=== PATIENT | female | born 1955 | race African-American/Black ===

== ENCOUNTER 2016-11-27 09:25 | Emergency (ER) | payer BC, MEDICARE, OTHER ==
[~2016-11-27] VITALS: Ht 165.1 cm; Wt 65.0 kg
[~2016-11-27 09:25] MED LIST: ARIC5TAB PO; BLOOD GLUCOSE T1 TES; FLON0.053; FLOV110A INH; GLUCTAB PO; HYDR25TA5 PO; LOSA100T PO; PRAV80TA2 PO; TAB-TAB PO; VENTAER INH
[2016-11-27 09:29] VITALS: BP 148/66; PULSE 61; RESP 18; TEMP 98.1; O2SAT 99
[2016-11-27] MEDS ORDERED: METF500T PO (09:34)
[2016-11-27] MEDS ORDERED: ARIC5TAB PO (09:34)
[2016-11-27] MEDS ORDERED: MEMA1TAB2 PO (09:35)
[2016-11-27] MEDS ORDERED: ARIC10TA PO (09:36)
--- NOTE | 2016-11-27 09:47 | PD ---
HPI Chief Complaint: Respiratory Symptoms Time Seen by Provider: 09:41 Travel History International Travel<30 days: No Contact w/Intl Traveler<30days: No Traveled to known affect area: No History of Present Illness HPI This is a 61-year-old woman who presents to the emergency department brought in by family for complaint of increasing dementia symptoms ongoing for the past 5 or 6 weeks. She lives with her . They report that she's been a little bit more confused than normal. She otherwise has been feeling generally well. She has no complaints. They report that she's been a little bit congested. She is a history of COPD. Some cough. No fevers. No other complaints. History Past Medical History Narrative Medical COPD Hypertension diabetes Alzheimer's type dementia Menopausal: Yes Social History Alcohol Use: Yes (OCCASIONALLY) Tobacco Use: No (quit 9 years ago) Allergies-Medications (Allergen,Severity, Reaction): Coded Allergies: Bee Sting (Verified Allergy, Severe, swelling, 07/10/15) Reported Meds & Prescriptions Reported Meds & Active Scripts Active Blood Glucose Test Strips 1 Apryl Apryl 1 Ea .ROUTE BID Contour test strips Reported Aricept (Donepezil) 10 Mg Tab 10 Mg PO HS Memantine 10 Mg Tab 10 Mg PO BID Metformin (Metformin HCl) 500 Mg Tab 500 Mg PO BIDPC With meals Pravastatin 80 Mg Tab 80 Mg PO HS Hydrochlorothiazide 25 Mg Tab 25 Mg PO DAILY Losartan (Losartan Potassium) 100 Mg Tab 100 Mg PO DAILY Ventolin Hfa 18 GM Inh (Albuterol Sulfate) 90 Mcg/Act Aer 2 Puff INH Q6H PRN Review of Systems Except as stated in HPI: all other systems reviewed are Neg Physical Exam Narrative GENERAL: Well-appearing 7-year-old, no acute distress. SKIN: Warm and dry. HEAD: Atraumatic. Normocephalic. EYES: Pupils equal and round. No scleral icterus. No injection or drainage. ENT: No nasal bleeding or discharge. Mucous membranes pink and moist. NECK: Trachea midline. No JVD. CARDIOVASCULAR: Regular rate and rhythm. No murmur appreciated. RESPIRATORY: Normal rate and effort. Lungs are clear. GASTROINTESTINAL: Abdomen soft, non-tender, nondistended. Hepatic and splenic margins not palpable. MUSCULOSKELETAL: No obvious deformities. No clubbing. No cyanosis. No edema. NEUROLOGICAL: Awake and alert. Some confusion. No facial asymmetry. Normal gait. Normal strength. Data Data Last Documented VS Vital Signs Date Time Temp Pulse Resp B/P Pulse Ox O2 Delivery O2 Flow Rate FiO2 11/27/16 09:29 98.1 61 18 148/66 99 Orders Chest, Single Ap (11/27/16 ) Complete Blood Count With Diff (11/27/16 09:42) Comprehensive Metabolic Panel (11/27/16 09:42) Urinalysis - C+S If Indicated (11/27/16 09:42) Urine Culture (11/27/16 10:21) Labs Laboratory Tests Test 11/27/16 11/27/16 10:00 10:21 White Blood Count 7.2 TH/MM3 Red Blood Count 4.62 MIL/MM3 Hemoglobin 12.5 GM/DL Hematocrit 37.9 % Mean Corpuscular Volume 82.2 FL Mean Corpuscular Hemoglobin 27.1 PG Mean Corpuscular Hemoglobin 33.0 % Concent Red Cell Distribution Width 13.2 % Platelet Count 382 TH/MM3 Mean Platelet Volume 7.7 FL Neutrophils (%) (Auto) 48.2 % Lymphocytes (%) (Auto) 24.4 % Monocytes (%) (Auto) 8.3 % Eosinophils (%) (Auto) 18.0 % Basophils (%) (Auto) 1.1 % Neutrophils # (Auto) 3.5 TH/MM3 Lymphocytes # (Auto) 1.8 TH/MM3 Monocytes # (Auto) 0.6 TH/MM3 Eosinophils # (Auto) 1.3 TH/MM3 Basophils # (Auto) 0.1 TH/MM3 CBC Comment DIFF FINAL Differential Comment Sodium Level 138 MEQ/L Potassium Level 3.9 MEQ/L Chloride Level 100 MEQ/L Carbon Dioxide Level 30.1 MEQ/L Anion Gap 8 MEQ/L Blood Urea Nitrogen 14 MG/DL Creatinine 0.98 MG/DL Estimat Glomerular Filtration 70 ML/MIN Rate Random Glucose 205 MG/DL Calcium Level 9.6 MG/DL Total Bilirubin 0.4 MG/DL Aspartate Amino Transf 17 U/L (AST/SGOT) Alanine Aminotransferase 28 U/L (ALT/SGPT) Alkaline Phosphatase 100 U/L Total Protein 8.1 GM/DL Albumin 3.8 GM/DL Urine Color YELLOW Urine Turbidity CLEAR Urine pH 5.0 Urine Specific [place] 1.018 Urine Protein NEG mg/dL Urine Glucose (UA) 150 mg/dL Urine Ketones NEG mg/dL Urine Occult Blood TRACE Urine Nitrite NEG Urine Bilirubin NEG Urine Urobilinogen LESS THAN 2.0 MG/DL Urine Leukocyte Esterase LARGE Urine RBC 2 /hpf Urine WBC 15 /hpf Urine Squamous Epithelial 3 /hpf Cells Urine Mucus FEW /lpf Microscopic Urinalysis Comment CULTURE INDICATED MDM Medical Decision Making Medical Screen Exam Complete: Yes Emergency Medical Condition: Yes Interpretation(s) Chest x-ray negative LABS: CBC unremarkable, CMP with mild increase glucose, UA was some pyuria. Differential Diagnosis Worsening dementia, infection, electrolyte abnormality, dehydration, other Narrative Course Medical decision making 61-year-old woman presents emergency room with increasing dementia symptoms. Looks well. Symptoms are subacute in onset. Some congestion. We'll check urine labs and x-ray. Likely discharge. Diagnosis Primary Impression: Dementia Qualified Code: G30.9 - Alzheimer's dementia without behavioral disturbance, unspecified timing of dementia onset Additional Impression: UTI (urinary tract infection) Qualified Code: N30.00 - Acute cystitis without hematuria Additional Instructions: Drink plenty of fluids stay well-hydrated. Take antibiotics as prescribed. Follow-up with her primary doctor in the next 2-4 days. Return to the emergency department for any new or worsening symptoms. Med/Other Pt SpecificInfo: Prescription(s) given Scripts Ciprofloxacin (Cipro)500 Mg Yns156 Mg PO BID 5 Days Prov:Romel Stoll MD 11/27/16 Disposition: 01 DISCHARGE HOME Condition: Stable Romel Stoll MD Nov 27, 2016 09:46
[2016-11-27 10:16] LABS: AUTOMATED NEUTROPHIL # 3.5 TH/MM3 (1.8-7.7); BASOPHIL # 0.1 TH/MM3 (0-0.2); BASOPHIL % 1.1 % (0.0-2.0); EOSINOPHIL # 1.3 TH/MM3 (0-0.4); HEMATOCRIT 37.9 % (35.0-46.0); HEMO FLAGS DIFF FINAL; LYMPH % 24.4 % (9.0-44.0); LYMPHOCYTE # 1.8 TH/MM3 (1.0-4.8); MEAN CELL VOLUME 82.2 FL (80.0-100.0); MEAN CORPUSCULAR HEMOGLOBIN 27.1 PG (27.0-34.0); MONO % 8.3 % (0.0-8.0); NEUT % 48.2 % (16.0-70.0); PLATELET COUNT 382 TH/MM3 (150-450); RED BLOOD COUNT 4.62 MIL/MM3 (4.00-5.30); RED CELL DISTRIBUTION WIDTH 13.2 % (11.6-17.2); WHITE BLOOD COUNT 7.2 TH/MM3 (4.0-11.0)
[2016-11-27 10:37] LABS: ANION GAP 8 MEQ/L (5-15); AST (GOT) 17 U/L (15-37); BICARBONATE 30.1 MEQ/L (21.0-32.0); BLOOD UREA NITROGEN 14 MG/DL (7-18); CHLORIDE 100 MEQ/L (98-107); GLOMERULAR FILTRATION RATE 70 ML/MIN (>89); POTASSIUM 3.9 MEQ/L (3.5-5.1); SODIUM (NA) 138 MEQ/L (136-145)
--- NOTE | 2016-11-27 10:38 | RADRPT ---
EXAM DATE/TIME: 11/27/2016 09:47 [facility] COMPARISON: CHEST SINGLE AP, July 10, 2015, 19:04. INDICATIONS : Cough and short of breath. MEDICAL HISTORY : None. SURGICAL HISTORY : None. ENCOUNTER: Initial ACUITY: 2 days PAIN SCORE: 0/10 LOCATION: Bilateral chest FINDINGS: A single view of the chest demonstrates the lungs to be symmetrically aerated without evidence of mas s, infiltrate or effusion. The cardiomediastinal contours are unremarkable. Osseous structures are intact. CONCLUSION: Normal examination. Johana Canchola MD on November 27, 2016 at 10:36 Board Certified Radiologist. This report was verified electronically.
[2016-11-27 10:42] LABS: BLOOD, URINE TRACE (NEG); COMMENT (UR) CULTURE INDICATED; CULTURE IF INDICATED CULTURE INDICATED; GLUCOSE,URINE 150 mg/dL (NEG); KETONE, URINE NEG (NEG); MUCUS URINE FEW /lpf (OCC); NITRITE,URINE NEG (NEG); SQUAMOUS EPITHELIAL CELL URINE 3 /hpf (0-5); URINE COLOR YELLOW (YELLW/STRAW)
[2016-11-27 10:42] LABS: ALKALINE PHOSPHATASE 100 U/L (45-117); ALT (GPT) 28 U/L (10-53); TOTAL BILIRUBIN ADULT 0.4 MG/DL (0.2-1.0)
[2016-11-27] MEDS ORDERED: CIPR-9 PO (10:55)
== END 2016-11-27 11:09 | disposition home or self-care (01) ==
LOC: NETRI 09:25
DX: G30.9 Alzheimer's disease, unspecified (principal); F02.80 Dementia in other diseases classified elsewhere, unspecified severity, without behavioral disturbance, psychotic disturbance, mood disturbance, and anxiety; N30.00 Acute cystitis without hematuria; R05 Cough; J44.9 Chronic obstructive pulmonary disease, unspecified; I10 Essential (primary) hypertension; E11.9 Type 2 diabetes mellitus without complications; Z79.84 Long term (current) use of oral hypoglycemic drugs; Z87.891 Personal history of nicotine dependence
CPT/HCPCS: 71010; 80053; 81001; 85025; 87086; 99285

== ENCOUNTER 2017-07-20 23:09 | Inpatient (IN) | payer BC, OTHER, MEDICARE ==
[~2017-07-20] VITALS: Ht 162.6 cm; Wt 69.7 kg
[~2017-07-20 23:09] MED LIST changes: +ARIC10TA PO; -ARIC5TAB PO; +CIPR-9 PO; -FLON0.053; -FLOV110A INH; -GLUCTAB PO; +MEMA1TAB2 PO; +METF500T PO; -TAB-TAB PO
[2017-07-20 23:13] VITALS: BP 198/91; PULSE 80; RESP 18; TEMP 97.7; O2SAT 95
[2017-07-20 23:30] VITALS: O2SAT 99
[2017-07-20] MEDS ORDERED: SODIUM CHLORIDE 0.9% FLUSH 10 ML FLUSH IVF PRN (23:30)
[2017-07-20] MEDS ORDERED: methylPREDNISolone SOD SUCC 125 MG/2 ML VIAL IVP ONE (23:30)
[2017-07-20] MEDS ORDERED: FLUTI110I INH (23:38)
[2017-07-20] MEDS ORDERED: CITA20TA4 PO (23:39)
[2017-07-20] MEDS: RESP: ALBUTEROL 2.5 MG/IPRATROPIUM 0.5 MG NEB (SCH) INH (23:39)
[2017-07-20] MEDS ORDERED: AMLO10TA2 PO (23:39)
[2017-07-20] MEDS ORDERED: MONT10TA4 PO (23:39)
[2017-07-20] MEDS ORDERED: DONE10TA7 PO (23:39)
--- NOTE | 2017-07-20 23:43 | PD ---
HPI Chief Complaint: Respiratory Distress Time Seen by Provider: 23:19 Travel History International Travel<30 days: No Contact w/Intl Traveler<30days: No Traveled to known affect area: No History of Present Illness HPI The patient is a 62 year old female who presents to the [facility] emergency department with a history of one week of increased cough with shortness of breath requiring use of her albuterol nebulizer treatments more frequently. The patient herself is not able to provide any history due to short -term memory problems related to Alzheimer's dementia. The patient lives at home with her . Her is able to provide her history. He reports that her cough is been at times productive of a white sputum. He denies her having any fevers. She has not had any chills or change in her appetite. He reports that she has been eating and drinking well. According to ambulance services that transported the patient the patient had O2 saturations on room air of 80%. The patient had diffuse expiratory wheezes noted. The patient was given albuterol nebulizer treatments en route to this facility and reportedly was feeling improved. The patient is not on any home oxygen. The patient is not on any steroids at home. She denies having any lower extremity edema. She denies having any chest pain. On review of systems otherwise, the patient and the patient's deny her having any neck pain, chest pain, abdominal pain , vomiting, diarrhea, urinary symptoms, or neurologic symptoms. [facility] Past Medical History Narrative Medical The patient's past medical history is significant for COPD, hypertension, diabetes mellitus, Alzheimer's dementia. Arthritis: No Asthma: Yes Autoimmune Disease: No Blood Disorders: No Anxiety: Yes Depression: No Heart Rhythm Problems: Yes Cancer: No Cardiovascular Problems: Yes (MURMUR SINCE BORN) High Cholesterol: Yes Chemotherapy: No Chest Pain: Yes Congestive Heart Failure: No COPD: Yes Cerebrovascular Accident: No Diabetes: Yes Patient Takes Glucophage: Yes (Metformin) Diminished Hearing: No Endocrine: No Gastrointestinal Disorders: No GERD: No Glaucoma: Yes Genitourinary: No Headaches: Yes Hepatitis: No Hiatal Hernia: No Heparin Induced Thrombocytopen: Yes Hypertension: Yes Immune Disorder: No Implanted Vascular Access Dvce: No Kidney Stones: No Musculoskeletal: Yes Neurologic: No Psychiatric: Yes Reproductive: Yes (HYSTERECTOMY INFLAMMED OVARY) Respiratory: Yes Migraines: No Myocardial Infarction: No Radiation Therapy: No Renal Failure: No Seizures: No Sickle Cell Disease: No Sleep Apnea: No Thyroid Disease: No Ulcer: No ?: Not Menopausal: Yes Past Surgical History Narrative Surgical The patient's past surgical history Abdominal Surgery: Yes (HYSTERECTOMY ) AICD: No Appendectomy: No Arteriovenous Shunt: No Cardiac Surgery: No Cholecystectomy: No Ear Surgery: No Endocrine Surgery: No Eye Surgery: No Genitourinary Surgery: No Gynecologic Surgery: Yes (HYSTERECTOMY ) Hysterectomy: Yes Insulin Pump: No Joint Replacement: No Neurologic Surgery: No Oral Surgery: No Pacemaker: No Thoracic Surgery: No Other Surgery: Yes Social History Alcohol Use: Yes (OCCASIONALLY) Tobacco Use: No (quit 9 years ago) Substance Use: No Allergies-Medications (Allergen,Severity, Reaction): Coded Allergies: bee venom protein (honey bee) (Verified Allergy, Severe, swelling, 07/20/17) Reported Meds & Prescriptions Reported Meds & Active Scripts Active Pravastatin 80 Mg Tab 80 Mg PO HS Blood Glucose Test Strips 1 Apryl Apryl 1 Ea .ROUTE BID Contour test strips Reported Donepezil 10 Mg Tab 10 Mg PO DAILY Montelukast (Montelukast Sodium) 10 Mg Tab 10 Mg PO HS Citalopram (Citalopram Hydrobromide) 20 Mg Tab 20 Mg PO DAILY Amlodipine (Amlodipine Besylate) 10 Mg Tab 10 Mg PO DAILY Flovent Hfa 12 GM Inh (Fluticasone Propionate) 110 Mcg/Act Inh 2 Puff INH BID Memantine 10 Mg Tab 10 Mg PO BID Metformin (Metformin HCl) 500 Mg Tab 850 Mg PO BIDPC With meals Hydrochlorothiazide 25 Mg Tab 25 Mg PO DAILY Losartan (Losartan Potassium) 100 Mg Tab 100 Mg PO DAILY Ventolin Hfa 18 GM Inh (Albuterol Sulfate) 90 Mcg/Act Aer 2 Puff INH Q6H PRN Review of Systems Except as stated in HPI: all other systems reviewed are Neg General / Constitutional: No: Fever Eyes: No: Visual changes HENT: Positive: Congestion, No: Headaches Cardiovascular: No: Chest Pain or Discomfort Respiratory: Positive: Cough, Shortness of Breath, Wheezing Gastrointestinal: No: Nausea, Vomiting, Diarrhea, Abdominal Pain, Loss of Appetite Genitourinary: No: Dysuria Musculoskeletal: No: Pain Skin: No Rash Neurologic: No: Weakness, Focal Abnormalities, Change in Mentation, Slurred Speech, Sensory Disturbance Psychiatric: No: Depression Endocrine: No: Polydipsia Hematologic/Lymphatic: No: Easy Bruising Physical Exam Narrative General: The patient is a well-developed well-nourished female in no acute distress. The patient is saturating 95% on 2 L nasal cannula O2. Head and Neck exam: Head is normocephalic atraumatic. Eyes: EOMI, pupils are equal round and reactive to light. Nose: Midline septum with pink mucous membranes Mouth: Dentition unremarkable. Moist mucus membranes. Posterior oropharynx is not erythematous. No tonsillar hypertrophy. Uvula midline. Airway patent. Neck: No palpable lymphadenopathy. No nuchal rigidity. No thyromegaly. Cardiovascular: Regular rate and rhythm without murmurs, gallops, or rubs. Lungs: Soft expiratory wheezes are audible throughout bilateral lung serrano, no rhonchi , no crackles. No accessory muscle use. Abdomen: Soft, without tenderness to palpation in all 4 quadrants of the abdomen. No guarding, rebound, or rigidity. Normal bowel sounds are audible. No tenderness on palpation of McBurney's point. Extremities: No clubbing, cyanosis, or edema. 2+ pulses in all 4 extremities. No calf tenderness on palpation. Back: No costovertebral angle tenderness to palpation. Neurologic Exam: Grossly nonfocal. Skin Exam: No rash noted. Intact skin that is warm and dry. Data Data Last Documented VS Vital Signs Date Time Temp Pulse Resp B/P (MAP) Pulse Ox O2 Delivery O2 Flow Rate FiO2 07/21/17 04:00 85 18 155/74 (101) 98 Room Air 07/21/17 01:20 2.00 07/20/17 23:13 97.7 Orders Orders Complete Blood Count With Diff (07/20/17 23:22) Comprehensive Metabolic Panel (07/20/17 23:22) B-Type Natriuretic Peptide (07/20/17 23:22) D-Dimer (07/20/17 23:22) Act Partial Throm Time (Ptt) (07/20/17 23:22) Prothrombin Time / Inr (Pt) (07/20/17 23:22) Magnesium (Mg) (07/20/17 23:22) Ckmb (Isoenzyme) Profile (07/20/17 23:22) Troponin I (07/20/17 23:22) Urinalysis - C+S If Indicated (07/20/17 23:22) Iv Access Insert/Monitor (07/20/17 23:22) Electrocardiogram (07/20/17 23:22) Ecg Monitoring (07/20/17 23:22) Oximetry (07/20/17 23:22) Oxygen Administration (07/20/17 23:22) Chest, Single Ap (07/20/17 23:22) Sodium Chloride 0.9% Flush (Ns Flush) (07/20/17 23:30) Methylprednisolone So Succ Inj (Solumedr (07/20/17 23:30) Albuterol-Ipratropium Neb (Duoneb Neb) (07/20/17 23:30) Lactic Acid Sepsis Protocol (07/21/17 00:40) Blood Culture (07/21/17 00:40) Ceftriaxone Inj (Rocephin Inj) (07/21/17 00:45) Azithromycin Inj (Zithromax Inj) (07/21/17 00:45) Ct Pulmonary Angiogram (07/21/17 01:21) Sodium Chlorid 0.9% 500 Ml Inj (Ns 500 M (07/21/17 02:00) Potassium Chloride Eff (K-Lyte Cl Eff) (07/21/17 02:45) Iohexol 350 Inj (Omnipaque 350 Inj) (07/21/17 02:59) Admit Order (Ed Use Only) (07/21/17 04:15) Labs Laboratory Tests Test 07/20/17 23:32 07/21/17 01:05 07/21/17 01:54 07/21/17 03:30 White Blood Count 6.7 TH/MM3 Red Blood Count 4.81 MIL/MM3 Hemoglobin 13.3 GM/DL Hematocrit 40.7 % Mean Corpuscular Volume 84.7 FL Mean Corpuscular Hemoglobin 27.7 PG Mean Corpuscular Hemoglobin Concent 32.8 % Red Cell Distribution Width 13.2 % Platelet Count 396 TH/MM3 Mean Platelet Volume 8.0 FL Neutrophils (%) (Auto) 47.0 % Lymphocytes (%) (Auto) 41.9 % Monocytes (%) (Auto) 6.1 % Eosinophils (%) (Auto) 4.4 % Basophils (%) (Auto) 0.6 % Neutrophils # (Auto) 3.2 TH/MM3 Lymphocytes # (Auto) 2.8 TH/MM3 Monocytes # (Auto) 0.4 TH/MM3 Eosinophils # (Auto) 0.3 TH/MM3 Basophils # (Auto) 0.0 TH/MM3 CBC Comment DIFF FINAL Differential Comment Prothrombin Time 11.2 SEC Prothromb Time International Ratio 1.0 RATIO Activated Partial Thromboplast Time 24.9 SEC D-Dimer Quantitative (PE/DVT) 1.38 MG/L FEU B-Type Natriuretic Peptide 10 PG/ML Lactic Acid Level 3.4 mmol/L Blood Urea Nitrogen 17 MG/DL Creatinine 1.47 MG/DL Random Glucose 275 MG/DL Total Protein 7.0 GM/DL Albumin 3.5 GM/DL Calcium Level 8.9 MG/DL Magnesium Level 1.3 MG/DL Alkaline Phosphatase 69 U/L Aspartate Amino Transf (AST/SGOT) 13 U/L Alanine Aminotransferase (ALT/SGPT) 11 U/L Total Bilirubin 0.4 MG/DL Sodium Level 138 MEQ/L Potassium Level 2.9 MEQ/L Chloride Level 102 MEQ/L Carbon Dioxide Level 24.9 MEQ/L Anion Gap 11 MEQ/L Estimat Glomerular Filtration Rate 44 ML/MIN Total Creatine Kinase 69 U/L Troponin I LESS THAN 0.02 NG/ML Urine Color LIGHT-YELLOW Urine Turbidity CLEAR Urine pH 5.0 Urine Specific [place] 1.018 Urine Protein NEG mg/dL Urine Glucose (UA) 300 mg/dL Urine Ketones NEG mg/dL Urine Occult Blood NEG Urine Nitrite NEG Urine Bilirubin NEG Urine Urobilinogen LESS THAN 2.0 MG/DL Urine Leukocyte Esterase SMALL Urine RBC 1 /hpf Urine WBC 2 /hpf Urine Squamous Epithelial Cells <1 /hpf Urine Hyaline Casts 1 /lpf Microscopic Urinalysis Comment CULT NOT INDICATED MDM Medical Decision Making Medical Screen Exam Complete: Yes Emergency Medical Condition: Yes Medical Record Reviewed: Yes Interpretation(s) Last Impressions CT Angiography 07/21/17 0121 Signed Impressions: Service Date/Time: Friday, July 21, 2017 02:51 - CONCLUSION: 1. No pulmonary embolus. 2. Mild, diffuse peribronchial cuffing as can be seen with bronchitis/bronchiolitis. No lobar consolidation. Vitaliy Mcguire MD Chest X-Ray 07/20/17 3789 Signed Impressions: Service Date/Time: Thursday, July 20, 2017 23:48 - CONCLUSION: Mild right upper lobe consolidation. Vitaliy Mcguire MD Differential Diagnosis COPD exacerbation, versus pneumonia, versus new-onset congestive heart failure, versus acute coronary syndrome, versus pulmonary embolism Narrative Course During the course of the patients emergency department visit, the patients history, examination, and differential diagnosis were reviewed with the patient. The patient had IV access obtained and blood work sent for analysis. The patient was placed on a court monitor with oximetry and blood pressure monitoring. An ECG was done on arrival. The patient's ECG shows a sinus rhythm with a marked sinus arrhythmia, heart rate of 73, nonspecific T-wave abnormalities, no acute ST segment elevation, QRS duration is 91 ms, QTC 435 ms. The patient was initially provided DuoNeb nebs 3, Solu-Medrol 125 mg IV The patients laboratory studies were reviewed and remarkable for a white count 6.7, hemoglobin 13.3, platelets 396 with 4.4 eosinophils, CMP is remarkable for a potassium of 2.9, creatinine 1.47, glucose 275, magnesium 1.3. Be supplemented IV, AST 13, troponin I less than 0.02, CPK 69, albumin 3.5, BNP is 10, lactic acid 3.4, PT PTT within normal as, d-dimer elevated at 1.38, therefore a CTA to rule out PE was ordered. Urinalysis is remarkable for 300 glucose otherwise unremarkable. Radiology studies were reviewed and remarkable for a chest x-ray that was read by the reading radiologist as showing a mild right upper lobe consolidation, even this finding, lactic acid was ordered and blood cultures 2 were ordered. The patient was started on Rocephin 1 g IV, Zithromax 500 IV. CTA to rule out PE shows no evidence of PE. Mild diffuse peribronchial cuffing as can be seen with bronchitis, bronchiolitis, no lobar consolidation. The patients results were discussed with the patient, including the plan of care. I explained that further testing and/ or monitoring is indicated based on the patients history, examination, and/ or laboratory findings. Therefore, I recommended admission for additional evaluation. The patient expressed understanding and was agreeable with this plan. The patient was admitted to the hospital in stable condition and [facility]. Sepsis Criteria Severe Sepsis (+one): Lactate >2 Physician Communication Physician Communication The patient's case was discussed with Dr. Lara [facility] Diagnosis Primary Impression: COPD exacerbation Additional Impression: Hypoxemia Admitting Information Admitting Physician Requests: Admit Sharmaine Rizo MD Jul 20, 2017 23:43
[2017-07-20 23:56] LABS: AUTOMATED NEUTROPHIL # 3.2 TH/MM3 (1.8-7.7); BASOPHIL % 0.6 % (0.0-2.0); EOSINOPHIL # 0.3 TH/MM3 (0-0.4); EOSINOPHIL % 4.4 % (0.0-4.0); HEMATOCRIT 40.7 % (35.0-46.0); HEMO FLAGS DIFF FINAL; LYMPH % 41.9 % (9.0-44.0); LYMPHOCYTE # 2.8 TH/MM3 (1.0-4.8); MEAN CELL VOLUME 84.7 FL (80.0-100.0); MEAN CORPUSCULAR HEMOGLOBIN 27.7 PG (27.0-34.0); MEAN CORPUSCULAR HGB CONC 32.8 % (32.0-36.0); MONO % 6.1 % (0.0-8.0); PLATELET COUNT 396 TH/MM3 (150-450); RED BLOOD COUNT 4.81 MIL/MM3 (4.00-5.30); RED CELL DISTRIBUTION WIDTH 13.2 % (11.6-17.2); WHITE BLOOD COUNT 6.7 TH/MM3 (4.0-11.0)
[2017-07-21] VITALS (15 sets, daily range): BP systolic 128–164; BP diastolic 68–81; PULSE 66–85; RESP 18–20; TEMP 97.8–98.2; O2SAT 96–99
[2017-07-21 00:05] LABS: APTT (PATIENT) 24.9 SEC (24.3-30.1); PROTHROMBIN TIME - PATIENT 11.2 SEC (9.8-11.6)
--- NOTE | 2017-07-21 00:09 | RADRPT ---
EXAM DATE/TIME: 07/20/2017 23:48 [facility] COMPARISON: CHEST SINGLE AP, July 10, 2015, 19:04. CHEST SINGLE AP, November 27, 2016, 9:47. INDICATIONS : Shortness of breath. MEDICAL HISTORY : None. SURGICAL HISTORY : None. ENCOUNTER: Initial ACUITY: 1 day PAIN SCORE: 0/10 LOCATION: Bilateral chest FINDINGS: Mild, streaky infiltrate seen medially of the right upper lobe. Lungs are otherwise clear. No pleural effusion or pneumothorax. Heart size stable, within normal limits. CONCLUSION: Mild right upper lobe consolidation. Vitaliy Mcguire MD on July 21, 2017 at 0:06 Board Certified Radiologist. This report was verified electronically.
[2017-07-21] MEDS ORDERED: cefTRIAXone INJ 1,000 MG in SODIUM CHLORIDE 0.9% INJ 100 ML IV ONE (00:45)
[2017-07-21] MEDS ORDERED: AZITHROMYCIN INJ 500 MG in SODIUM CHLOR 0.9% 250 ML INJ 250 ML IV ONE (00:45)
[2017-07-21] MEDS ORDERED: SODIUM CHLORID 0.9% 500 ML INJ 500 ML IV ONE (02:00)
[2017-07-21 02:25] LABS: ALKALINE PHOSPHATASE 69 U/L (45-117); ALT (GPT) 11 U/L (10-53); ANION GAP 11 MEQ/L (5-15); AST (GOT) 13 U/L (15-37); BICARBONATE 24.9 MEQ/L (21.0-32.0); BLOOD UREA NITROGEN 17 MG/DL (7-18); CHLORIDE 102 MEQ/L (98-107); CREATINE KINASE 69 U/L (26-192); GLOMERULAR FILTRATION RATE 44 ML/MIN (>89); MAGNESIUM 1.3 MG/DL (1.5-2.5); SODIUM (NA) 138 MEQ/L (136-145); TOTAL BILIRUBIN ADULT 0.4 MG/DL (0.2-1.0)
[2017-07-21 02:31] LABS: POTASSIUM 2.9 MEQ/L (3.5-5.1)
[2017-07-21] MEDS ORDERED: POTASSIUM CHLORIDE 25 MEQ EFFERVESCENT TAB PO ONE (02:45)
[2017-07-21] MEDS ORDERED: IOHEXOL 350 MG/ML 10 ML VIAL (for RAD DIAG) IVCONTRAST ONE (02:59)
--- NOTE | 2017-07-21 03:21 | RADRPT ---
EXAM DATE/TIME: 07/21/2017 02:51 [facility] COMPARISON: CTA CHEST W 3D RECON, March 26, 2010, 15:10. INDICATIONS : Short of breath, elevated D-Dimer. Evaluate for embolism. IV CONTRAST: 74 cc Omnipaque 350 (iohexol) IV RADIATION DOSE: 23.30 CTDIvol (mGy) MEDICAL HISTORY : Chronic obstructive pulmonary disease. Hypertension. Diabetes mellitus type 2. SURGICAL HISTORY : Hysterectomy. ENCOUNTER: Initial ACUITY: 1 day PAIN SCALE: 0/10 LOCATION: chest TECHNIQUE: Volumetric scanning of the chest was performed using a pulmonary embolism protocol MIP images were re constructed. Using automated exposure control and adjustment of the mA and/or kV according to patien t size, radiation dose was kept as low as reasonably achievable to obtain optimal diagnostic quality images. DICOM format image data is available electronically for review and comparison. Follow-up recommendations for detected pulmonary nodules are based at a minimum on nodule size and pa tient risk factors according to Fleischner Society Guidelines. FINDINGS: PULMONARY ARTERIES: No filling defects are seen in the pulmonary arteries through the segmental level. LUNGS: There is no consolidation or pneumothorax . Mild bronchial wall thickening, fairly generalized but p erhaps slightly more predominant in the right lower lobe. No masses are seen. No concerning pulmonary nodule is visualized. PLEURAE: There is no pleural thickening or pleural effusion. MEDIASTINUM: There is good visualization of the great vessels of the middle mediastinum. No evidence of mediastin al or hilar adenopathy/mass. MUSCULOSKELETAL: Within normal limits for patient age. MISCELLANEOUS: The visualized upper abdominal organs demonstrate no acute abnormality. CONCLUSION: 1. No pulmonary embolus. 2. Mild, diffuse peribronchial cuffing as can be seen with bronchitis/bronchiolitis. No lobar consoli dation. Vitaliy Mcguire MD on July 21, 2017 at 3:16 Board Certified Radiologist. This report was verified electronically.
[2017-07-21 03:23] LABS: LACTIC ACID GHOST NOT REPORTABLE
[2017-07-21 04:17] LABS: BLOOD, URINE NEG (NEG); GLUCOSE,URINE 300 mg/dL (NEG); HYALINE CAST, URINE 1 /lpf (RARE); KETONE, URINE NEG (NEG); NITRITE,URINE NEG (NEG); SQUAMOUS EPITHELIAL CELL URINE <1 /hpf (0-5); URINE COLOR LIGHT-YELLOW (YELLW/STRAW)
[2017-07-21 04:22] LABS: COMMENT (UR) CULT NOT INDICATED; CULTURE IF INDICATED CULT NOT INDICATED
--- NOTE | 2017-07-21 05:56 | HHI.HP ---
HPI Service [facility] Primary Care Physician Vitaliy Daniel MD Admission Diagnosis COPD exacerbation, bronchitis Diagnoses: Chief Complaint: Short of breath Travel History International Travel<30 Days: No Contact w/Intl Traveler <30 Da: No Traveled to Known Affected Are: No History of Present Illness 62 years old female presented to the ED with a complaint of worsening shortness of breath over one week with increase frequency of using her nebulizer treatment. Patient has history of Alzheimer with short term memory problems, most of the story was obtained from her daughter who was at the bedside. Daughter mentioned that the patient has been having worsening cough with clear phlegm, fatigue, no fever or chills no nausea or vomiting, no chest pain no dysuria urgency or frequency Review of Systems Except as stated in HPI: all other systems reviewed are Neg All systems reviewed and was positive for what is mentioned in history of present illness otherwise negative, most of the review was done with the daughter because patient had Alzheimer's Past Family Social History Past Medical History COPD Hypertension Diabetes mellitus Alzheimer disease Murmur since more Past Surgical History Hysterectomy Allergies: Coded Allergies: bee venom protein (honey bee) (Verified Allergy, Severe, swelling, 07/20/17) Family History Diabetes runs in her family Social History Drinks alcohol occasionally Quit smoking 9 years ago No illicit drug abuse Physical Exam Vital Signs Vital Signs Date Time Temp Pulse Resp B/P (MAP) Pulse Ox O2 Delivery O2 Flow Rate FiO2 07/21/17 04:00 85 18 155/74 (101) 98 Room Air 07/21/17 01:20 79 20 164/74 (104) 99 Nasal Cannula 2.00 07/20/17 23:30 99 Nasal Cannula 2.00 07/20/17 23:27 95 Nasal Cannula 2.00 07/20/17 23:25 95 Nasal Cannula 2.00 07/20/17 23:13 97.7 80 18 198/91 (126) 95 Physical Exam GENERAL: This is a well-nourished, well-developed patient, in no apparent distress. SKIN: No rashes, warm and dry HEAD: Atraumatic. Normocephalic. EYES: Pupils equal round and reactive. Extraocular motions intact. No scleral icterus. ENT: Nose without bleeding, or drainage, Airway patent. NECK: Trachea midline. Supple CARDIOVASCULAR: Slightly tacky with systolic murmur 2 out of 6 RESPIRATORY: Fair air entry bilaterally. No wheezes, rales, or rhonchi. GASTROINTESTINAL: Abdomen soft, non-tender, nondistended. Positive bowel sounds MUSCULOSKELETAL: Extremities without clubbing, cyanosis, or edema. Pedal pulses appreciated NEUROLOGICAL: Awake and alert. Moves all extremity. Normal speech.no focal neurological deficit Laboratory Laboratory Tests Test 07/20/17 23:32 07/21/17 01:05 07/21/17 01:54 07/21/17 03:30 White Blood Count 6.7 Red Blood Count 4.81 Hemoglobin 13.3 Hematocrit 40.7 Mean Corpuscular Volume 84.7 Mean Corpuscular Hemoglobin 27.7 Mean Corpuscular Hemoglobin Concent 32.8 Red Cell Distribution Width 13.2 Platelet Count 396 Mean Platelet Volume 8.0 Neutrophils (%) (Auto) 47.0 Lymphocytes (%) (Auto) 41.9 Monocytes (%) (Auto) 6.1 Eosinophils (%) (Auto) 4.4 Basophils (%) (Auto) 0.6 Neutrophils # (Auto) 3.2 Lymphocytes # (Auto) 2.8 Monocytes # (Auto) 0.4 Eosinophils # (Auto) 0.3 Basophils # (Auto) 0.0 CBC Comment DIFF FINAL Differential Comment Prothrombin Time 11.2 Prothromb Time International Ratio 1.0 Activated Partial Thromboplast Time 24.9 D-Dimer Quantitative (PE/DVT) 1.38 B-Type Natriuretic Peptide 10 Lactic Acid Level 3.4 Blood Urea Nitrogen 17 Creatinine 1.47 Random Glucose 275 Total Protein 7.0 Albumin 3.5 Calcium Level 8.9 Magnesium Level 1.3 Alkaline Phosphatase 69 Aspartate Amino Transf (AST/SGOT) 13 Alanine Aminotransferase (ALT/SGPT) 11 Total Bilirubin 0.4 Sodium Level 138 Potassium Level 2.9 Chloride Level 102 Carbon Dioxide Level 24.9 Anion Gap 11 Estimat Glomerular Filtration Rate 44 Total Creatine Kinase 69 Troponin I LESS THAN 0.02 Urine Color LIGHT-YELLOW Urine Turbidity CLEAR Urine pH 5.0 Urine Specific [place] 1.018 Urine Protein NEG Urine Glucose (UA) 300 Urine Ketones NEG Urine Occult Blood NEG Urine Nitrite NEG Urine Bilirubin NEG Urine Urobilinogen LESS THAN 2.0 Urine Leukocyte Esterase SMALL Urine RBC 1 Urine WBC 2 Urine Squamous Epithelial Cells <1 Urine Hyaline Casts 1 Microscopic Urinalysis Comment CULT NOT INDICATED Test 07/21/17 05:00 Date/Time Source Procedure Growth Status 07/21/17 01:27 Blood Peripheral Aerobic Blood Culture Pending Received 07/21/17 01:27 Blood Peripheral Anaerobic Blood Culture Pending Received Result Diagram: 07/20/17 2332 07/21/17 [address] Angiography 07/21/17 012 Signed Impressions: Service Date/Time: Friday, July 21, 2017 02:51 - CONCLUSION: 1. No pulmonary embolus. 2. Mild, diffuse peribronchial cuffing as can be seen with bronchitis/bronchiolitis. No lobar consolidation. Vitaliy Mcguire MD Chest X-Ray 07/20/172321 Signed Impressions: Service Date/Time: Thursday, July 20, 2017 23:48 - CONCLUSION: Mild right upper lobe consolidation. Vitaliy Mcguire MD Caprini VTE Risk Assessment Caprini VTE Risk Assessment: Mod/High Risk (score >= 2) Caprini Risk Assessment Model Point Value = 1 Point Value = 2 Point Value = 3 Point Value = 5 Age 41-60 Minor surgery BMI > 25 kg/m2 Swollen legs Varicose veins or History of unexplained or recurrent spontaneous Oral contraceptives or hormone replacement Sepsis (< 1 month) Serious lung disease, including pneumonia (< 1 month) Abnormal pulmonary function Acute myocardial infarction Congestive heart failure (< 1 month) History of inflammatory bowel disease Medical patient at bed rest Age 61-74 Arthroscopic surgery Major open surgery (> 45 min) Laparoscopic surgery (> 45 min) Malignancy Confined to bed (> 72 hours) Immobilizing plaster cast Central venous access Age >= 75 History of VTE Family history of VTE Factor V Leiden Prothrombin [id number] Lupus anticoagulant Anticardiolipin antibodies Elevated serum homocysteine Heparin-induced thrombocytopenia Other congenital or acquired thrombophilia Stroke (< 1 month) Elective arthroplasty Hip, pelvis, or leg fracture Acute spinal cord injury (< 1 month) Prophylaxis Regimen Total Risk Factor Score Risk Level Prophylaxis Regimen 0-1 Low Early ambulation 2 Moderate Order ONE of the following: *Sequential Compression Device (SCD) *Heparin 5000 units SQ BID 3-4 Higher Order ONE of the following medications: *Heparin 5000 units SQ TID *Enoxaparin/Lovenox 40 mg SQ daily (WT < 150 kg, CrCl > 30 mL/min) *Enoxaparin/Lovenox 30 mg SQ daily (WT < 150 kg, CrCl > 10-29 mL/min) *Enoxaparin/Lovenox 30 mg SQ BID (WT < 150 kg, CrCl > 30 mL/min) AND/OR *Sequential Compression Device (SCD) 5 or more Highest Order ONE of the following medications: *Heparin 5000 units SQ TID (Preferred with Epidurals) *Enoxaparin/Lovenox 40 mg SQ daily (WT < 150 kg, CrCl > 30 mL/min) *Enoxaparin/Lovenox 30 mg SQ daily (WT < 150 kg, CrCl > 10-29 mL/min) *Enoxaparin/Lovenox 30 mg SQ BID (WT < 150 kg, CrCl > 30 mL/min) AND *Sequential Compression Device (SCD) Assessment and Plan Assessment and Plan 62 years old female presented with - Worsening short of breath with cough , fatigue and dehydration: X-rays of the chest showed right middle lobe consolidation however CT chest did not confirm this, most likely acute bronchitis, continue monitoring, DuoNeb, electrolyte correction. CTA chest reviewed personally by me Lactic acidosis 3.4: Continue iv fluid repeat labs in a.m. -EVA: Creatinine Drinks alcohol occasionally Avoid nephrotoxin, monitor BMP and creatinine, monitor urine output, consider further follow up with renal ultrasound spot urine over. Protein creatinine ratio Quit smoking 9 years ago No illicit drug abuse -Electrolyte imbalance with hypomagnesemia and hypokalemia: Replace i.e. nothing by mouth as needed DVT prophylaxis with SCD and heparin - Physician Certification 2 Midnight Certification Type: Admission for Inpatient Services Order for Inpatient Services The services are ordered in accordance with Medicare regulations or non- Medicare payer requirements, as applicable. In the case of services not specified as inpatient-only, they are appropriately provided as inpatient services in accordance with the 2-midnight benchmark. Estimated LOS (days): 2 days is the estimated time the patient will need to remain in the hospital, assuming treatment plan goals are met and no additional complications. Post-Hospital Plan: Not yet determined Jose Lara MD Jul 21, 2017 05:56
[2017-07-21] MEDS: MAGNESIUM SULFATE 1 GM PREMIX 100 ML IV SCH ×2 (06:02→07:47)
[2017-07-21] MEDS ORDERED: SODIUM CHLORIDE 0.9% FLUSH 10 ML FLUSH IV FLUSH PRN (08:00)
[2017-07-21] MEDS ORDERED: DEXTROSE 50% IN WATER 50 ML VIAL(D50) IV PRN (08:00)
[2017-07-21] MEDS ORDERED: NALOXONE HCL 0.4 MG/ML AMP IV PRN (08:00)
[2017-07-21] MEDS ORDERED: GLUCAGON 1 MG/ML VIAL OTHER PRN (08:00)
[2017-07-21] MEDS ORDERED: RESP: ALBUTEROL 2.5 MG/IPRATROPIUM 0.5 MG NEB (PRN) NEB (08:00)
[2017-07-21] MEDS ORDERED: MAGNESIUM HYDROXIDE SUSP 30 ML CUP PO PRN (09:00)
[2017-07-21] MEDS ORDERED: ONDANSETRON HCL 4 MG/2 ML VIAL IVP PRN (09:00)
[2017-07-21] MEDS ORDERED: ACETAMINOPHEN 325 MG TAB PO PRN ×2 (09:00)
[2017-07-21] MEDS: MEMANTINE HCL 10 MG TAB PO SCH ×2 (09:01→20:35)
[2017-07-21] MEDS: SODIUM CHLOR 0.9% 1000 ML INJ 1,000 ML IV SCH ×2 (09:01→23:18)
[2017-07-21] MEDS: DONEPEZIL HCL 5 MG TAB PO SCH (09:01)
[2017-07-21] MEDS: SODIUM CHLORIDE 0.9% FLUSH 10 ML FLUSH IV FLUSH SCH ×2 (09:10→20:35)
[2017-07-21] MEDS: INSULIN ASPART SUPPLEMENTAL SCALE SQ SCH ×3 (11:23→20:45)
--- NOTE | 2017-07-21 15:40 | HHI.PR ---
Addendum to Inpatient Note Addendum Reason: Additional Documentation Additional Information Follow-up shortness of breath, lactic acidosis Patient seen and examined, reports some improvement of shortness of breath since admission Continue to monitor labs Dylan Sweet MD Jul 21, 2017 15:39
--- NOTE | 2017-07-21 20:04 | EKG ---
Date Performed: 07/21/2017 Time Performed: 00:32:06 PTAGE: 62 years EKG: Sinus rhythm WITH MARKED SINUS ARRHYTHMIA NONSPECIFIC T-WAVE ABNORMALITY BORDERLINE ECG NO PREVIOUS TRACING DOCTOR: Van Elias Interpretating Date/Time 07/21/2017 20:02:48
[2017-07-21] MEDS: MONTELUKAST SODIUM 10 MG TAB PO SCH (20:35)
[2017-07-21] MEDS: PRAVASTATIN SOD 80 MG TAB PO SCH (20:35)
[2017-07-21] MEDS: FLUTICASONE PROPIONATE 110 MCG/ACT 12 GM INHALER INH SCH (20:38)
[2017-07-22] VITALS (23 sets, daily range): BP systolic 128–174; BP diastolic 73–81; PULSE 55–77; RESP 16–19; TEMP 97.9–98.8; O2SAT 97–99
[2017-07-22] MEDS: INSULIN ASPART SUPPLEMENTAL SCALE SQ SCH ×4 (06:31→21:00)
[2017-07-22] MEDS: MEMANTINE HCL 10 MG TAB PO SCH ×2 (09:33→21:18)
[2017-07-22] MEDS: SODIUM CHLORIDE 0.9% FLUSH 10 ML FLUSH IV FLUSH SCH ×2 (09:33→21:00)
[2017-07-22] MEDS: DONEPEZIL HCL 5 MG TAB PO SCH (09:34)
[2017-07-22] MEDS: FLUTICASONE PROPIONATE 110 MCG/ACT 12 GM INHALER INH SCH ×2 (10:28→21:19)
--- NOTE | 2017-07-22 10:56 | HHI.PR ---
Subjective Remarks Follow-up bronchitis/dyspnea/lactic acidosis 07/22/17-patient seen and examined, reports some improvement or shortness of breath since admission. Afebrile Objective Vitals Vital Signs Date Time Temp Pulse Resp B/P (MAP) Pulse Ox O2 Delivery O2 Flow Rate FiO2 07/22/17 10:00 63 07/22/17 08:08 98.8 77 18 135/75 (95) 97 07/22/17 07:00 68 07/22/17 06:00 67 07/22/17 05:00 65 07/22/17 04:00 61 07/22/17 04:00 98.1 62 18 128/73 (91) 97 07/22/17 03:00 63 07/22/17 02:00 60 07/22/17 01:00 61 07/22/17 00:00 62 07/22/17 00:00 98.1 62 18 147/76 (99) 98 07/21/17 23:00 67 07/21/17 22:00 73 07/21/17 21:00 70 07/21/17 20:00 98.2 66 20 128/77 (94) 98 07/21/17 20:00 66 07/21/17 18:00 68 07/21/17 17:00 70 07/21/17 16:00 71 07/21/17 15:00 73 07/21/17 15:00 98.0 72 20 144/68 (93) 96 07/21/17 14:00 68 07/21/17 13:00 81 07/21/17 12:00 66 07/21/17 11:00 98.0 70 20 159/74 (102) 99 07/21/17 11:00 67 I/O 07/21/17 07/21/17 07/21/17 07/22/17 07/22/17 07/22/17 07:00 15:00 23:00 07:00 15:00 23:00 Intake Total 850 ml 200 ml 763 ml 1180 ml Balance 850 ml 200 ml 763 ml 1180 ml Intake Oral 240 ml 480 ml IV Total 850 ml 200 ml 523 ml 700 ml # Voids 1 3 # Bowel Movements 0 Result Diagram: 07/20/17 9526 07/21/17 [address] Angiography 07/21/17 0121 Signed Impressions: Service Date/Time: Friday, July 21, 2017 02:51 - CONCLUSION: 1. No pulmonary embolus. 2. Mild, diffuse peribronchial cuffing as can be seen with bronchitis/bronchiolitis. No lobar consolidation. Vitaliy Mcguire MD Chest X-Ray 07/20/17 2851 Signed Impressions: Service Date/Time: Thursday, July 20, 2017 23:48 - CONCLUSION: Mild right upper lobe consolidation. Vitaliy Mcguire MD Objective Remarks GENERAL: NAD SKIN: Warm and dry. HEAD: Normocephalic. EYES: No scleral icterus. No injection or drainage. NECK: Supple, trachea midline. No JVD or lymphadenopathy. CARDIOVASCULAR: Regular rate and rhythm without murmurs, gallops, or rubs. RESPIRATORY: Breath sounds equal bilaterally. No accessory muscle use. Expiratory wheeze left middle lung GASTROINTESTINAL: Abdomen soft, non-tender, nondistended. MUSCULOSKELETAL: No cyanosis, or edema. BACK: Nontender without obvious deformity. No CVA tenderness. A/P Problem List: (1) Bronchitis ICD Code: J40 - Bronchitis, not specified as acute or chronic (2) Lactic acidosis ICD Code: E87.2 - Acidosis Status: Acute (3) Dementia ICD Code: F03.90 - Unspecified dementia without behavioral disturbance Status: Chronic (4) HTN (hypertension) ICD Code: I10 - HTN (hypertension) Status: Chronic (5) Diabetes ICD Code: E11.9 - Diabetes Status: Chronic Assessment and Plan 62-year-old female with Acute Respiratory failure-resolved Bronchitis Although chest x-ray with finding of pulmonary infiltrate, however CTA ruled out pulmonary infiltrate but positive for bronchitis Will start patient on Levaquin 250 mg every 48 hours secondary to renal function, by mouth prednisone Continue LABA as well as TUTU Maintain oxygen saturation above 92% Lactic acidosis Continue with IV fluid hydration and monitor lactic acid 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
[2017-07-22] MEDS ORDERED: LEVOFLOXACIN 250 MG TAB PO SCH (12:00)
[2017-07-22] MEDS: predniSONE 10 MG TAB PO SCH (12:37)
[2017-07-22] MEDS: SODIUM CHLOR 0.9% 1000 ML INJ 1,000 ML IV SCH ×2 (13:36→21:46)
[2017-07-22] MEDS: MONTELUKAST SODIUM 10 MG TAB PO SCH (21:18)
[2017-07-22] MEDS: PRAVASTATIN SOD 80 MG TAB PO SCH (21:18)
[2017-07-23] VITALS: BP 166/77; PULSE 58; RESP 14; TEMP 98; O2SAT 100
[2017-07-23 04:00] VITALS: BP 168/87; PULSE 58; RESP 12; TEMP 97.9; O2SAT 100
[2017-07-23] MEDS: INSULIN ASPART SUPPLEMENTAL SCALE SQ SCH (05:14)
[2017-07-23 08:00] VITALS: BP 154/70; PULSE 54; RESP 16; TEMP 98; O2SAT 97
[2017-07-23] MEDS: predniSONE 10 MG TAB PO SCH (08:56)
[2017-07-23] MEDS: MEMANTINE HCL 10 MG TAB PO SCH (08:56)
[2017-07-23] MEDS: DONEPEZIL HCL 5 MG TAB PO SCH (08:56)
[2017-07-23] MEDS: FLUTICASONE PROPIONATE 110 MCG/ACT 12 GM INHALER INH SCH (08:57)
[2017-07-23] MEDS: SODIUM CHLORIDE 0.9% FLUSH 10 ML FLUSH IV FLUSH SCH (08:57)
[2017-07-23 09:10] LABS: POTASSIUM 3.4 MEQ/L (3.5-5.1)
[2017-07-23] MEDS ORDERED: LEVA250T14 PO (09:46)
[2017-07-23] MEDS ORDERED: IPRA17I INH (09:49)
[2017-07-23] MEDS ORDERED: VENTAER INH (09:49)
[2017-07-23] MEDS ORDERED: PRED10 PO (09:49)
--- NOTE | 2017-07-23 09:52 | HHI.PR ---
Subjective Remarks Follow-up bronchitis/dyspnea/lactic acidosis 07/22/17-patient seen and examined, reports some improvement or shortness of breath since admission. Afebrile 07/23/17-patient seen and examined, stable and denies any cough or shortness of breath. States she's feeling much better Objective Vitals Vital Signs Date Time Temp Pulse Resp B/P (MAP) Pulse Ox O2 Delivery O2 Flow Rate FiO2 07/23/17 08:00 98.0 54 16 154/70 (98) 97 07/23/17 04:00 97.9 58 12 168/87 (114) 100 07/23/17 04:00 Room Air 07/23/17 00:00 Room Air 07/23/17 00:00 98.0 58 14 166/77 (106) 100 07/22/17 22:05 57 07/22/17 22:00 Room Air 07/22/17 21:55 97.9 57 16 174/81 (112) 07/22/17 20:00 98.1 55 19 146/77 (100) 99 07/22/17 17:08 71 07/22/17 16:08 64 07/22/17 15:20 98.1 68 18 132/75 (94) 98 07/22/17 15:00 64 07/22/17 14:07 75 07/22/17 13:00 58 07/22/17 12:00 60 07/22/17 11:08 62 07/22/17 11:07 97.9 62 18 130/75 (93) 98 07/22/17 11:00 58 07/22/17 10:00 63 I/O 07/22/17 07/22/17 07/22/17 07/23/17 07/23/17 07/23/17 07:00 15:00 23:00 07:00 15:00 23:00 Intake Total 1180 ml 1005 ml 480 ml 800 ml Balance 1180 ml 1005 ml 480 ml 800 ml Intake Oral 480 ml 480 ml 240 ml IV Total 700 ml 1005 ml 560 ml # Voids 3 2 22 # Bowel Movements 0 1 1 Result Diagram: 07/20/17 0242 07/23/17 0817 Objective Remarks GENERAL: NAD SKIN: Warm and dry. HEAD: Normocephalic. EYES: No scleral icterus. No injection or drainage. NECK: Supple, trachea midline. No JVD or lymphadenopathy. CARDIOVASCULAR: Regular rate and rhythm without murmurs, gallops, or rubs. RESPIRATORY: Breath sounds equal bilaterally. No accessory muscle use. Expiratory wheeze left middle lung GASTROINTESTINAL: Abdomen soft, non-tender, nondistended. MUSCULOSKELETAL: No cyanosis, or edema. BACK: Nontender without obvious deformity. No CVA tenderness. Procedures none A/P Problem List: (1) Bronchitis ICD Code: J40 - Bronchitis, not specified as acute or chronic (2) Lactic acidosis ICD Code: E87.2 - Acidosis Status: Acute (3) Dementia ICD Code: F03.90 - Unspecified dementia without behavioral disturbance Status: Chronic (4) HTN (hypertension) ICD Code: I10 - HTN (hypertension) Status: Chronic (5) Diabetes ICD Code: E11.9 - Diabetes Status: Chronic Assessment and Plan 62-year-old female with Acute Respiratory failure-resolved Bronchitis Although chest x-ray with finding of pulmonary infiltrate, however CTA ruled out pulmonary infiltrate but positive for bronchitis Currently on Levaquin 250 mg every 48 hours secondary to renal function, as well as prednisone Continue LABA as well as TUTU Maintain oxygen saturation above 92% Lactic acidosis Resolved with IV fluid hydration and monitor lactic acid 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
--- NOTE | 2017-07-23 09:54 | HHI.DS ---
Discharge Summary Admission Date Jul 22, 2017 at 09:32 Discharge Date: Jul 23, 2017 Admitting Diagnosis COPD exacerbation, bronchitis (1) Bronchitis ICD Code: J40 - Bronchitis, not specified as acute or chronic (2) Lactic acidosis ICD Code: E87.2 - Acidosis Status: Acute (3) Dementia ICD Code: F03.90 - Unspecified dementia without behavioral disturbance Status: Chronic (4) HTN (hypertension) ICD Code: I10 - HTN (hypertension) Status: Chronic (5) Diabetes ICD Code: E11.9 - Diabetes Status: Chronic Procedures none Brief History - From Admission 62 years old female presented to the ED with a complaint of worsening shortness of breath over one week with increase frequency of using her nebulizer treatment. Patient has history of Alzheimer with short term memory problems, most of the story was obtained from her daughter who was at the bedside. Daughter mentioned that the patient has been having worsening cough with clear phlegm, fatigue, no fever or chills no nausea or vomiting, no chest pain no dysuria urgency or frequency CBC/BMP: 07/20/17 2332 07/23/17 0817 Significant Findings Laboratory Tests Test 07/20/17 23:32 07/21/17 01:05 07/21/17 01:54 07/21/17 03:30 Eosinophils (%) (Auto) 4.4 % (0.0-4.0) D-Dimer Quantitative (PE/DVT) 1.38 MG/L FEU (0.00-0.50) Lactic Acid Level 3.4 mmol/L (0.4-2.0) Creatinine 1.47 MG/DL (0.50-1.00) Random Glucose 275 MG/DL (74-106) Magnesium Level 1.3 MG/DL (1.5-2.5) Aspartate Amino Transf (AST/SGOT) 13 U/L (15-37) Potassium Level 2.9 MEQ/L (3.5-5.1) Estimat Glomerular Filtration Rate 44 ML/MIN (>89) Troponin I LESS THAN 0.02 NG/ML Urine Glucose (UA) 300 mg/dL (NEG) Urine Leukocyte Esterase SMALL (NEG) Test 07/21/17 05:00 07/21/17 09:30 07/23/17 08:17 Lactic Acid Level 5.1 mmol/L (0.4-2.0) 5.0 mmol/L (0.4-2.0) Creatinine 1.07 MG/DL (0.50-1.00) Random Glucose 117 MG/DL (74-106) Potassium Level 3.4 MEQ/L (3.5-5.1) Estimat Glomerular Filtration Rate 63 ML/MIN (>89) Imaging Last Impressions CT Angiography 07/21/17 0121 Signed Impressions: Service Date/Time: Friday, July 21, 2017 02:51 - CONCLUSION: 1. No pulmonary embolus. 2. Mild, diffuse peribronchial cuffing as can be seen with bronchitis/bronchiolitis. No lobar consolidation. Vitaliy Mcguire MD Chest X-Ray 07/20/17 7148 Signed Impressions: Service Date/Time: Thursday, July 20, 2017 23:48 - CONCLUSION: Mild right upper lobe consolidation. Vitaliy Mcguire MD PE at Discharge GENERAL: NAD SKIN: Warm and dry. HEAD: Normocephalic. EYES: No scleral icterus. No injection or drainage. NECK: Supple, trachea midline. No JVD or lymphadenopathy. CARDIOVASCULAR: Regular rate and rhythm without murmurs, gallops, or rubs. RESPIRATORY: Breath sounds equal bilaterally. No accessory muscle use. Expiratory wheeze left middle lung GASTROINTESTINAL: Abdomen soft, non-tender, nondistended. MUSCULOSKELETAL: No cyanosis, or edema. BACK: Nontender without obvious deformity. No CVA tenderness. Hospital Course admitted secondary to respiratory failure due to bronchitis for which she was started on prednisone as well as by mouth antibiotics with significant improvement of symptom. Her symptoms of shortness of breath also improved with breathing treatment including bronchodilators. Renal function improved with IV fluid hydration. Initially on presentation she had lactic acidosis which also improve IV fluid hydration. CTA ruled out PE. Patient was started on sliding scale insulin with monitoring of blood glucose. Perplexes were provided. She' ll be discharged on 3 days of prednisone as well as Levaquin 250 mg by mouth every 48 hours Pt Condition on Discharge: Stable Discharge Disposition: Discharge Home Discharge Time: <= 30 minutes Discharge Instructions DIET: Follow Instructions for: Diabetic Diet Activities you can perform: Regular-No Restrictions Follow up Referrals: PCP Follow-up - 1 Week New Medications: Albuterol 18 GM Inh (Ventolin Hfa 18 GM Inh) 90 Mcg/Act Aer 2 PUFF INH Q6H PRN for SHORTNESS OF BREATH, #1 INHALER 0 Refills Ipratropium HFA 12.9 GM Inh (Atrovent HFA 12.9 GM Inh) 17 Mcg/Actuation Aer 2 PUFF INH QID for Breathing Treatment, #1 INHALER 0 Refills Levofloxacin (Levaquin) 250 Mg Tablet 250 MG PO Q48H for Infection, #3 MG Prednisone (Prednisone) 10 Mg Tab 10 MG PO DAILY for Infection for 3 Days, #3 TAB Continued Medications: Albuterol 18 GM Inh (Ventolin Hfa 18 GM Inh) 90 Mcg/Act Aer 2 PUFF INH Q6H PRN for SHORTNESS OF BREATH, #1 INHALER 0 Refills Amlodipine (Amlodipine) 10 Mg Tab 10 MG PO DAILY for Blood Pressure Management, #30 TAB 0 Refills Citalopram (Citalopram) 20 Mg Tab 20 MG PO DAILY for Control Depression, #30 TAB 0 Refills Donepezil (Donepezil) 10 Mg Tab 10 MG PO DAILY for Dementia, #30 TAB 0 Refills Fluticasone 12 GM Inh (Flovent Hfa 12 GM Inh) 110 Mcg/Act Inh 2 PUFF INH BID for Asthma Management, #1 INHALER 0 Refills Hydrochlorothiazide (Hydrochlorothiazide) 25 Mg Tab 25 MG PO DAILY, #30 TAB 0 Refills Losartan (Losartan) 100 Mg Tab 100 MG PO DAILY for Blood Pressure Management, #30 TAB 0 Refills Memantine (Memantine) 10 Mg Tab 10 MG PO BID for Alzheimer's Dementia, TAB 0 Refills Metformin (Metformin) 500 Mg Tab 850 MG PO BIDPC for Blood Sugar Management, #60 TAB 0 Refills With meals Montelukast (Montelukast) 10 Mg Tab 10 MG PO HS, #30 TAB 0 Refills Pravastatin (Pravastatin) 80 Mg Tab 80 MG PO HS for Cholesterol Management, #30 TAB 6 Refills Dylan Sweet MD Jul 23, 2017 09:54
== END 2017-07-23 10:27 | disposition home or self-care (01) | DRG 190 ==
LOC: NEPE 23:09 → INTOOBSV 07-21 04:16 → NEDA 07-21 04:16 → HCIS 07-21 11:01 → OBSVTOIN 07-22 09:32 → N04A 07-22 21:35
PROVIDERS: ADMIT Hospitalist; ATTEND Hospitalist
DX: J44.1 Chronic obstructive pulmonary disease with (acute) exacerbation (principal); J96.01 Acute respiratory failure with hypoxia; E87.2 Acidosis; N18.4 Chronic kidney disease, stage 4 (severe); N17.9 Acute kidney failure, unspecified; I12.9 Hypertensive chronic kidney disease with stage 1 through stage 4 chronic kidney disease, or unspecified chronic kidney disease; G30.9 Alzheimer's disease, unspecified; F02.80 Dementia in other diseases classified elsewhere, unspecified severity, without behavioral disturbance, psychotic disturbance, mood disturbance, and anxiety; J40 Bronchitis, not specified as acute or chronic; E11.9 Type 2 diabetes mellitus without complications; Z79.84 Long term (current) use of oral hypoglycemic drugs; E87.6 Hypokalemia; E83.42 Hypomagnesemia; E78.5 Hyperlipidemia, unspecified; Z87.891 Personal history of nicotine dependence
CPT/HCPCS: 71010; 71275; 80048; 80053; 81001; 82550; 82948; 83605; 83735; 83880; 84484; 85025; 85379; 85610; 85730; 87040; 93005; 94640; 94664; 96365; 96375; J0456; J0696; J1815; J2930; J3475; J7030; J7040; J7050; J7512; Q9967

== ENCOUNTER 2018-07-19 14:33 | Inpatient (IN) ==
[2018-07-19 14:50] LABS: VBG Base Excess 1.6 mmol/L (-2-2); VBG Blood Gas Oxygen Content 9.8 Vol % (9.0-17.0); VBG PCO2 59 mmHG (44-48); VBG PH 7.29 (7.360-7.400); VBG PO2 39 mmHG (35-40)
--- NOTE | 2018-07-19 14:58 | XR ---
EXAM DATE: 07/19/2018 2:56 PM EDT AGE/SEX: 63 years / Female INDICATIONS: Cough CLINICAL DATA: This is the patient's initial encounter. Patient reports that signs and symptoms have been present for 1 day and indicates a pain score of Nonresponsive. MEDICAL/SURGICAL HISTORY: . Chronic obstructive pulmonary disease. Hypertension. Diabetes enoch itus type 2. . Hysterectomy COMPARISON: [facility] [place], CT PULMONARY ANGIOGRAM, 07/21/2017. . FINDINGS: A single AP view of the chest demonstrates the lungs to be symmetrically aerated without evidence of mass, infiltrate or effusion. The cardiomediastinal contours are unremarkable. Osseous structures a re intact. CONCLUSION: Negative examination. Electronically signed by: Kalin Srinivasan MD 07/19/2018 2:57 PM EDT
--- NOTE | 2018-07-19 15:01 | ED ---
HPI General Chief complaint: Shortness of Breath/Dyspnea Stated complaint: medical Time Seen by Provider: 07/19/18 14:41 Source: patient, family and EMS Mode of arrival: EMS Limitations: altered mental status (dementia) History of Present Illness HPI narrative: 63-year-old female that presents to the ED for evaluation of respiratory distress. Patient apparently is a hospice patient diabetes. Patient apparently is in hospice for dementia but she is now DNR. She apparently still capable of getting CPR and tubing per family. Patient apparently has been short of breath since today. Patient was given breathing treatments by family with no improvement. A call EVAC who gave 3 duo nebs and Solu-Medrol with minimal improvement. The had to put the patient on BiPAP and patient improved. Patient still on BiPAP here. Patient does appear to be having some hard time breathing and she does appear to be wheezing. Patient has unfortunately severe dementia and cannot really give me a history. Patient does appear to be oriented to place but not to time or what her medical issues are. She is also very short of breath. She denies any chest pain however. She denies any abdominal pain or fevers or chills or sweats. Again history is limited that most of the history was obtained from EVAC as well as the family who showed up. Related Data Home Medications Medication Instructions Recorded Confirmed albuterol sulfate [Proventil HFA] 2 puff INHALATION Q4H PRN 07/19/18 07/19/18 albuterol sulfate [Ventolin HFA] 2 puff INHALATION Q6H PRN 07/19/18 07/19/18 aspirin 81 mg PO DAILY 07/19/18 07/19/18 donepezil [Aricept] 5 mg PO DAILY 07/19/18 07/19/18 lorazepam [Ativan] 0.5 mg PO DAILY 07/19/18 07/19/18 losartan 100 mg PO DAILY 07/19/18 07/19/18 memantine [Namenda] 5 mg PO DAILY 07/19/18 07/19/18 metformin 850 mg PO BID 07/19/18 07/19/18 pravastatin 80 mg PO HS 07/19/18 07/19/18 Allergies Allergy/AdvReac Type Severity Reaction Status Date / Time bee venom protein (honey bee) Allergy Severe swelling Verified 07/19/18 14:48 Review of Systems ROS: all other systems reviewed are negative PMFSH History History Provided By: Patient, Family Member, Medical Record and Nurse Prn / EMT Medical History Medical History Alzheimer disease (Acute) Asthma (Acute) COPD (chronic obstructive pulmonary disease) (Acute) Diabetes (Acute) HTN (hypertension) (Acute) History of hysterectomy (Acute) Hypercholesteremia (Acute) Social History Social History Substance History: Past History Second Hand Smoke Exposure: No Smoking Status: Former smoker Tobacco Type: Cigarettes How Often Do You Have a Drink Containing Alcohol: Never Recent Travel in [facility] within the Last 8 Weeks: No Recent Out of Country Travel within the Last 8 Weeks: No Exam Narrative Exam Narrative: GENERAL: Well groomed but in respiratory distress SKIN: Focused skin assessment warm/dry. HEAD: Atraumatic. Normocephalic. EYES: Pupils equal and round. No scleral icterus. No injection or drainage. ENT: No nasal bleeding or discharge. Mucous membranes pink and moist. Tongue is midline. No uvula deviation. NECK: Trachea midline. No JVD. CARDIOVASCULAR: Regular rate and rhythm. No murmur appreciated. RESPIRATORY: No accessory muscle use. Wheezing heard in all lung serrano. Breath sounds equal bilaterally. GASTROINTESTINAL: Abdomen soft, non-tender, nondistended. Hepatic and splenic margins not palpable. MUSCULOSKELETAL: No obvious deformities. No clubbing. No cyanosis. No edema. Full range of motion of the upper and lower extremities bilaterally. 2+ pulses bilaterally. NEUROLOGICAL: Awake and alert. No obvious cranial nerve deficits. Motor grossly within normal limits. Normal speech. PSYCHIATRIC: Appropriate mood and affect; insight and judgment normal. Course Initial Documented Vital Signs Pulse Rate 89 07/19/18 14:41 Respiratory Rate 29 H 07/19/18 14:41 Blood Pressure 179/77 H 07/19/18 14:41 Pulse Oximetry 99 07/19/18 14:41 Last Documented Vital Signs Temperature 97.8 F 07/20/18 08:00 Pulse Rate 84 07/20/18 11:00 Respiratory Rate 17 07/20/18 08:45 Blood Pressure 155/86 H 07/20/18 08:00 Pulse Oximetry 90 L 07/20/18 08:45 Medical Decision Making LADY Attestation LADY supervised visit: Yes Attestation: I, Dr. Phillip, have reviewed the advance practice practitioner's documentation and am in agreement, met with the patient face to face, made the diagnosis, and the medical decision making was done by me. *My assessment and Findings: Patient seen and examined by me in addition to Good Avila PA-C, patient does have what appears to be acute respiratory acidosis with a PCO2 of 60 and a pH of 7.28. She did spend some time on CPAP prior to arrival in the emergency department, she is given treatments, she saturating well, Starting on BiPAP is indicated. Apparently she has been on hospice for dementia but is full code according to EMS. Awaiting arrival as well. Her EKG shows sinus rhythm, irregular however but P waves are clearly seen. Overall rate of 95, intervals do appear to be within normal limits. No concerning ST segment changes. Borderline EKG. MDM Narrative Medical decision making narrative: 63-year-old female the presents to the ED for evaluation of shortness of breath. Patient was properly examined and was found to have signs and symptoms consistent respiratory distress likely from COPD exacerbation. Labs and imaging order. Arnold anderson initially order. Patient had a venous gas that did show some respiratory distress and patient was put on BiPAP. She and symptoms have improved and she is satting well. Case was discussed with family. Per family patient is not DNR and they do want to being and chest compressions if needed. At this time patient will be admitted to the hospital secondary to respiratory distress. Case discussed with Dr. Patterson who agrees admission to his medical team. My attending Dr. Phillip evaluated the patient himself and agrees with this plan. Medical Screen Exam Complete: Yes Emergency Medical Condition: Yes Differential Diagnosis Differential Diagnosis: Respiratory distress versus COPD exacerbation versus asthma exacerbation Medical Records Medical records reviewed: Yes I reviewed the patient's medical records. Lab Data Lab results reviewed: Yes I reviewed the patient's lab results. Result diagrams: 07/20/18 10:48 07/20/18 10:48 Lab Results 07/19/18 07/19/18 07/19/18 Range/Units 14:35 14:52 14:52 WBC 11.0 (4.0-11.0) th/mm3 RBC 3.89 L (4.00-5.30) mil/mm3 Hgb 10.9 L (11.6-15.3) gm/dL Hct 34.0 L (35.0-46.0) % MCV 87.2 (80.0-100.0) fL MCH 27.9 (27.0-34.0) pg MCHC 32.0 (32.0-36.0) % RDW 13.1 (11.6-17.2) % Plt Count 411 (150-450) th/mm3 MPV 7.5 (7.0-11.0) fL Neut % (Auto) 51.1 (16.0-70.0) % Lymph % (Auto) 32.9 (9.0-44.0) % [place] % (Auto) 7.3 (0.0-8.0) % Eos % (Auto) 8.1 H (0.0-4.0) % Baso % (Auto) 0.6 (0.0-2.0) % Neut # (Auto) 5.6 (1.8-7.7) th/mm3 Lymph # (Auto) 3.6 (1.0-4.8) th/mm3 [place] # (Auto) 0.8 (0.0-0.9) th/mm3 Eos # (Auto) 0.9 H (0.0-0.4) th/mm3 Baso # (Auto) 0.1 (0.0-0.2) th/mm3 WBC Differential . Differential Comment Auto diff final Patient Temperature 98.6 VBG pH 7.29 L* (7.360-7.400) VBG pCO2 59 H* (44-48) mmHG VBG pO2 39 (35-40) mmHG VBG HCO3 28 H (22-26) mmol/L VBG O2 Saturation 64 L (70-76) % VBG O2 Content 9.8 (9.0-17.0) Vol % VBG Base Excess 1.6 (-2-2) mmol/L VBG Carboxyhemoglobin 0.7 (0-4) % VBG Methemoglobin 0.8 (0-2) % Hemoglobin 10.8 L (12.0-16.0) G/DL O2 Delivery Device Sm Liter Flow 7.00 L/M Inspired O2 21 % Critical Value Yes Sodium 144 (136-145) meq/L Potassium 3.8 (3.5-5.1) meq/L Chloride 107 (98-107) meq/L Carbon Dioxide 28.0 (21.0-32.0) meq/L Anion Gap 9 (5-15) meq/L BUN 18 (7-18) mg/dL Creatinine 1.25 H (0.50-1.00) mg/dL Estimated GFR 53 L (>89) mL/min POC Glucose (68-110) mg/dl Random Glucose 110 H (74-106) mg/dL Calcium 9.4 (8.5-10.1) mg/dL Total Bilirubin (0.2-1.0) mg/dL AST (15-37) U/L ALT (10-53) U/L Alkaline Phosphatase (45-117) U/L Troponin I Less than 0.02 L (0.02-0.05) ng/mL Total Protein (6.4-8.2) g/dL Albumin (3.4-5.0) g/dL 07/19/18 07/20/18 07/20/18 Range/Units 21:12 07:55 10:48 WBC 10.4 (4.0-11.0) th/mm3 RBC 3.72 L (4.00-5.30) mil/mm3 Hgb 10.3 L (11.6-15.3) gm/dL Hct 32.5 L (35.0-46.0) % MCV 87.2 (80.0-100.0) fL MCH 27.7 (27.0-34.0) pg MCHC 31.7 L (32.0-36.0) % RDW 12.8 (11.6-17.2) % Plt Count 370 (150-450) th/mm3 MPV 7.7 (7.0-11.0) fL Neut % (Auto) 90.4 H (16.0-70.0) % Lymph % (Auto) 5.9 L (9.0-44.0) % [place] % (Auto) 3.1 (0.0-8.0) % Eos % (Auto) 0.0 (0.0-4.0) % Baso % (Auto) 0.6 (0.0-2.0) % Neut # (Auto) 9.4 H (1.8-7.7) th/mm3 Lymph # (Auto) 0.6 L (1.0-4.8) th/mm3 [place] # (Auto) 0.3 (0.0-0.9) th/mm3 Eos # (Auto) 0.0 (0.0-0.4) th/mm3 Baso # (Auto) 0.1 (0.0-0.2) th/mm3 WBC Differential . Differential Comment Auto diff final Patient Temperature VBG pH (7.360-7.400) VBG pCO2 (44-48) mmHG VBG pO2 (35-40) mmHG VBG HCO3 (22-26) mmol/L VBG O2 Saturation (70-76) % VBG O2 Content (9.0-17.0) Vol % VBG Base Excess (-2-2) mmol/L VBG Carboxyhemoglobin (0-4) % VBG Methemoglobin (0-2) % Hemoglobin (12.0-16.0) G/DL O2 Delivery Device Liter Flow L/M Inspired O2 % Critical Value Sodium (136-145) meq/L Potassium (3.5-5.1) meq/L Chloride (98-107) meq/L Carbon Dioxide (21.0-32.0) meq/L Anion Gap (5-15) meq/L BUN (7-18) mg/dL Creatinine (0.50-1.00) mg/dL Estimated GFR (>89) mL/min POC Glucose 120 H (68-110) mg/dl Random Glucose (74-106) mg/dL Calcium (8.5-10.1) mg/dL Total Bilirubin (0.2-1.0) mg/dL AST (15-37) U/L ALT (10-53) U/L Alkaline Phosphatase (45-117) U/L Troponin I Less than 0.02 L (0.02-0.05) ng/mL Total Protein (6.4-8.2) g/dL Albumin (3.4-5.0) g/dL 18 07/20/18 Range/Units 10:48 11:33 WBC (4.0-11.0) th/mm3 RBC (4.00-5.30) mil/mm3 Hgb (11.6-15.3) gm/dL Hct (35.0-46.0) % MCV (80.0-100.0) fL MCH (27.0-34.0) pg MCHC (32.0-36.0) % RDW (11.6-17.2) % Plt Count (150-450) th/mm3 MPV (7.0-11.0) fL Neut % (Auto) (16.0-70.0) % Lymph % (Auto) (9.0-44.0) % [place] % (Auto) (0.0-8.0) % Eos % (Auto) (0.0-4.0) % Baso % (Auto) (0.0-2.0) % Neut # (Auto) (1.8-7.7) th/mm3 Lymph # (Auto) (1.0-4.8) th/mm3 [place] # (Auto) (0.0-0.9) th/mm3 Eos # (Auto) (0.0-0.4) th/mm3 Baso # (Auto) (0.0-0.2) th/mm3 WBC Differential Differential Comment Patient Temperature VBG pH (7.360-7.400) VBG pCO2 (44-48) mmHG VBG pO2 (35-40) mmHG VBG HCO3 (22-26) mmol/L VBG O2 Saturation (70-76) % VBG O2 Content (9.0-17.0) Vol % VBG Base Excess (-2-2) mmol/L VBG Carboxyhemoglobin (0-4) % VBG Methemoglobin (0-2) % Hemoglobin (12.0-16.0) G/DL O2 Delivery Device Liter Flow L/M Inspired O2 % Critical Value Sodium 144 (136-145) meq/L Potassium 4.1 (3.5-5.1) meq/L Chloride 107 (98-107) meq/L Carbon Dioxide 27.4 (21.0-32.0) meq/L Anion Gap 10 (5-15) meq/L BUN 23 H (7-18) mg/dL Creatinine 1.55 H (0.50-1.00) mg/dL Estimated GFR 41 L (>89) mL/min POC Glucose 131 H (68-110) mg/dl Random Glucose 142 H (74-106) mg/dL Calcium 9.5 (8.5-10.1) mg/dL Total Bilirubin 0.3 (0.2-1.0) mg/dL AST 12 L (15-37) U/L ALT 15 (10-53) U/L Alkaline Phosphatase 65 (45-117) U/L Troponin I (0.02-0.05) ng/mL Total Protein 7.6 (6.4-8.2) g/dL Albumin 3.7 (3.4-5.0) g/dL Imaging Data Attestation: I personally reviewed and interpreted this imaging study as follows : Radiologist's impression: Chest X-Ray 07/19/18 14:42 CONCLUSION: Negative examination. Discharge Plan Discharge Disposition Patient Disposition: 30 Still Patient Discharge Details Diagnosis: Acute respiratory distress, Acute exacerbation of chronic obstructive airways disease Physicians Team ED Provider: Richar Phillip ED Midlevel Provider: Good Avila Primary Care Provider: [facility],Ag[facility] Attending Provider: Dylan Sweet Status ED Status: Left Department Discharge Information Discharge Date/Time: 07/19/18 21:24
[2018-07-19 15:13] LABS: Baso # (Auto) 0.1 th/mm3 (0.0-0.2); Baso % (Auto) 0.6 % (0.0-2.0); Eos # (Auto) 0.9 th/mm3 (0.0-0.4); Eos % (Auto) 8.1 % (0.0-4.0); Hemoglobin 10.9 gm/dL (11.6-15.3); Lymph # (Auto) 3.6 th/mm3 (1.0-4.8); Lymph % (Auto) 32.9 % (9.0-44.0); Mean Corpuscular Hemoglobin 27.9 pg (27.0-34.0); Mean Corpuscular Volume 87.2 fL (80.0-100.0); Mean Platelet Volume 7.5 fL (7.0-11.0); Mono # (Auto) 0.8 th/mm3 (0.0-0.9); Mono % (Auto) 7.3 % (0.0-8.0); Neut # (Auto) 5.6 th/mm3 (1.8-7.7); Neut % (Auto) 51.1 % (16.0-70.0); Platelet Count 411 th/mm3 (150-450); Red Blood Count 3.89 mil/mm3 (4.00-5.30); Red Cell Distribution Width 13.1 % (11.6-17.2)
[2018-07-19 15:35] LABS: Anion Gap 9 meq/L (5-15); Blood Urea Nitrogen 18 mg/dL (7-18); Calcium 9.4 mg/dL (8.5-10.1); Chloride 107 meq/L (98-107); Glomerular Filtration Rate 53 mL/min (>89); Glucose,Random 110 mg/dL (74-106); Potassium 3.8 meq/L (3.5-5.1); Sodium 144 meq/L (136-145)
--- NOTE | 2018-07-19 17:45 | P.HPIM ---
History of Present Illness Service: [facility] Primary Care Physician: [facility] Chief Complaint: Shortness of breath History of Present Illness: Mrs. Powers is a 63 yo F with PMH COPD, Alzheimer's dementia, DM, HTN, hyperlipidemia who presented to [place] [facility] ED with shortness of breath. [Patient on BIPAP at time of interview; history provided by daughter and via phone]. Patient reportedly had been generally doing well with exception of some stuffy nose and occasional cough until today; patient began feeling short of breath and coughing nonproductively. Patient's gave her Albuterol treatments x2 which did not improve symptoms as they usually do; patient continued to feel more short of breath with worsening cough. Patient's family called home hospice nurse (Debra); they were were told there could not be a nurse immediately so patient was brought to ED. Patient's daughter declares that she is full code at this time. No chest pain, fevers/chills, abdominal pain, abnormal bowel movements, or abnormal urination. Patient has not recently had COPD exacerbation. Patient's daughter sick with cold but otherwise no known sick contacts. No recent periods of immobility. Patient has had some increased sinus disease. No recent confusion. Patient has been compliant with her home medications; daughter states that these have changed some when switching physicians. Interval History: Patient seen in ED after EVAC brought patient; patient received Duonebs x3 and Solumedrol without improvement in transit. VBG obtained demonstrating PCO2 60, pH 7.28. Patient placed on BIPAP; saturations improved from 80's to high 90's. Patient admitted to medicine for further evaluation/ treatment Inpatient Certification: I certify that the inpatient services were ordered in accordance with Medicare regulations governing the order. This includes certification that hospital inpatient services are reasonable and necessary and in the case of services not specified as inpatient-only under 42 CFR 419.22(n), that they are appropriately provided as inpatient services in accordance to with the 2-midnight benchmark under 43 CFR 412.3(e) Review of Systems All other systems reviewed negative except as stated in HPI Constitutional: Denies fatigue, Denies fever(s), Denies weakness Ears, Nose, Mouth, and Throat: Reports nasal congestion, Reports sinus pressure Cardiovascular: Reports shortness of breath, Denies chest pain Respiratory: Reports chest congestion, Reports cough Gastrointestinal: Denies abdominal pain, Denies constipation Genitourinary: Denies urinary urgency Musculoskeletal: Reports abnormal walking (no recent changes) Skin/Breast: Denies new lesions, Denies redness Neurologic: Reports other (baseline dementia), Denies tingling/numbness/burning sensations, Denies weakness Psychiatric: Reports memory loss PMFSH - History History Provided By: Patient, Family Member, Medical Record, [employer] Operator / EMT - Medical History Medical History: Medical History (Last Updated 07/19/18 @ 23:16 by Anshul Patterson MD) Alzheimer disease Asthma COPD (chronic obstructive pulmonary disease) Diabetes HTN (hypertension) History of hysterectomy History of hysterectomy Hypercholesteremia - Family History Family History: Family History (Last Updated 07/19/18 @ 23:17 by Anshul Patterson MD) Other Diabetes - Tobacco History Second Hand Smoke Exposure: No Tobacco Use In Past 30 Days: No Smoking Status: Former smoker Tobacco Type: Cigarettes - Alcohol History How Often Do You Have a Drink Containing Alcohol: Never - Substance Use History Substance History: Past History - Substance Use Type Crack/Cocaine Status: Sustained Remission Route Used: Inhalation - Travel History Recent Travel in the [place] Within the Last 8 Weeks: No Recent Travel Out of the Country Within the Last 8 Weeks: No - Immunization History Tetanus Immunization: Unsure Hx Influenza Vaccine This Season: No Medications and Allergies Active Medications: Active Medications Sodium Chloride (Ns Flush) 2 ml IV.FLUSH PRN PRN PRN Reason: FLUSH AFTER USING IV ACCESS Allergies Allergy/AdvReac Type Severity Reaction Status Date / Time bee venom protein (honey bee) Allergy Severe swelling Verified 07/19/18 14:48 Home Medications Medication Instructions Recorded Confirmed Type albuterol sulfate [Proventil HFA] 2 puff INHALATION Q4H PRN 07/19/18 07/19/18 History albuterol sulfate [Ventolin HFA] 2 puff INHALATION Q6H PRN 07/19/18 07/19/18 History aspirin 81 mg PO DAILY 07/19/18 07/19/18 History donepezil [Aricept] 5 mg PO DAILY 07/19/18 07/19/18 History lorazepam [Ativan] 0.5 mg PO DAILY 07/19/18 07/19/18 History losartan 100 mg PO DAILY 07/19/18 07/19/18 History memantine [Namenda] 5 mg PO DAILY 07/19/18 07/19/18 History metformin 850 mg PO BID 07/19/18 07/19/18 History pravastatin 80 mg PO HS 07/19/18 07/19/18 History Exam Vital signs: Vital Signs 07/19/18 14:41 07/19/18 14:50 07/19/18 15:07 Pulse Rate 89 Respiratory Rate 29 H Blood Pressure 179/77 H Pulse Oximetry 99 100 100 07/19/18 15:09 07/19/18 15:10 07/19/18 15:48 Pulse Rate 90 94 H Respiratory Rate 20 19 Blood Pressure 192/89 H Pulse Oximetry 100 99 07/19/18 16:00 07/19/18 17:00 Pulse Rate 98 H 99 H Respiratory Rate 13 Blood Pressure 158/74 H 139/71 Pulse Oximetry 100 Intake & Output 07/18/18 07/19/18 07/19/18 18:59 06:59 18:59 Weight 58.967 kg Narrative: GENERAL: On BIPAP; saturations improved to 100% SKIN: No visible lesions HEAD: Atraumatic. EYES: EOM grossly I. No visible injection. ENT: Exam deferred on BIPAP NECK: No appreciated thyromegaly or lymphadenopathy. No JVD. CARDIOVASCULAR: Regular rate and rhythm. No murmurs appreciated. Grossly normal perfusion RESPIRATORY: Mild tachypnea. Bilateral congestion with possible upper airway component; wheezes on expiration. Exam limited by BIPAP GASTROINTESTINAL: Abdomen soft, non-tender, nondistended. MUSCULOSKELETAL: No obvious deformities. No calf asymmetry. Grossly normal ROM NEUROLOGICAL: Awake and alert; can respond to brief questions. No obvious cranial nerve deficits. Patient able to feel sensation and move distal extremities on command Results - Labs CBC & Chem 7: 07/19/18 14:52 07/19/18 14:52 Labs: Short CBC 07/19/18 Range/Units 14:52 WBC 11.0 (4.0-11.0) th/mm3 Hgb 10.9 L (11.6-15.3) gm/dL Hct 34.0 L (35.0-46.0) % Plt Count 411 (150-450) th/mm3 BMP 07/19/18 14:52 Sodium 144 Potassium 3.8 Chloride 107 Carbon Dioxide 28.0 BUN 18 Creatinine 1.25 H Calcium 9.4 Cardiac Enzymes 07/19/18 Range/Units 14:52 Troponin I Less than 0.02 L (0.02-0.05) ng/mL - Imaging Impressions Chest X-Ray 07/19/18 14:42 CONCLUSION: Negative examination. Caprini VTE Risk Assessment Caprini VTE Risk Assessment: Moderate/High Risk (score >= 2) Caprini Risk Assessment Model: Point Value = 1 Point Value = 2 Point Value = 3 Point Value = 5 Age 41-60 Minor surgery BMI > 25 kg/m2 Swollen legs Varicose veins or History of unexplained or recurrent spontaneous Oral contraceptives or hormone replacement Sepsis (< 1 month) Serious lung disease, including pneumonia (< 1 month) Abnormal pulmonary function Acute myocardial infarction Congestive heart failure (< 1 month) History of inflammatory bowel disease Medical patient at bed rest Age 61-74 Arthroscopic surgery Major open surgery (> 45 min) Laparoscopic surgery (> 45 min) Malignancy Confined to bed (> 72 hours) Immobilizing plaster cast Central venous access Age >= 75 History of VTE Family history of VTE Factor V Leiden Prothrombin [id number] Lupus anticoagulant Anticardiolipin antibodies Elevated serum homocysteine Heparin-induced thrombocytopenia Other congenital or acquired thrombophilia Stroke (< 1 month) Elective arthroplasty Hip, pelvis, or leg fracture Acute spinal cord injury (< 1 month) Prophylaxis Regimen: Total Risk Factor Score Risk Level Prophylaxis Regimen 0-1 Low Early ambulation 2 Moderate Order ONE of the following: *Sequential Compression Device (SCD) *Heparin 5000 units SQ BID 3-4 Higher Order ONE of the following medications: *Heparin 5000 units SQ TID *Enoxaparin/Lovenox 40 mg SQ daily (WT < 150 kg, CrCl > 30 mL/min) *Enoxaparin/Lovenox 30 mg SQ daily (WT < 150 kg, CrCl > 10-29 mL/min) *Enoxaparin/Lovenox 30 mg SQ BID (WT < 150 kg, CrCl > 30 mL/min) AND/OR *Sequential Compression Device (SCD) 5 or more Highest Order ONE of the following medications: *Heparin 5000 units SQ TID (Preferred with Epidurals) *Enoxaparin/Lovenox 40 mg SQ daily (WT < 150 kg, CrCl > 30 mL/min) *Enoxaparin/Lovenox 30 mg SQ daily (WT < 150 kg, CrCl > 10-29 mL/min) *Enoxaparin/Lovenox 30 mg SQ BID (WT < 150 kg, CrCl > 30 mL/min) AND *Sequential Compression Device (SCD) Assessment and Plan - Plan Mrs. Powers is a 63 yo F with PMH COPD, Alzheimer's dementia, DM, HTN, hyperlipidemia who presented to [facility] ED with shortness of breath. patient did not improve so placed on BIPAP; patient admitted to medicine for further treatment Respiratory Impression: PMH prior Asthma/COPD; on home Albuterol/Duonebs. Recent respiratory worsening today refractory to Albuterol. O2 saturations improved with BIPAP in ED VBG with pH 7.28 CBC w/o leukocytosis; BMP with Cr 1.25 Well's PE score of zero; low concern for PE currently Troponin x1 negative -Will continue to monitor O2 saturations and provide BIPAP PRN -Will give empiric COPD exacerbation treatment -steroid therapy (IV Solumedrol while on BIPAP) -IV Levofloxacin -Continue Duonebs -Continue PRN Albuterol -Will check sputum culture Cardiac Impression: No known CAD despite ASCVD risks. EKG read as Afib on admission per computer; Q waves appear present -Will monitor on Tele and repeat EKG Dementia -Continue home Donepezil, Namenda EVA Impression: Cr 1.25 on admission. Fluctuating baseline ~1 in EMR -Will monitor BMP -Will give NS at 80ml/hr DM -Will give SS Novolog insulin while inpatient and hold Metformin HTN -Will give Losartan Anxiety -Lorazepam as needed for anxiety DVT PPX Will give Lovenox 40mg daily Code Status: Full code- prior hospice but family would like all interventions currently if needed
[2018-07-19] MEDS ORDERED: Acetaminophen 325 MG Tablet PO PRN (18:33)
[2018-07-19] MEDS ORDERED: Dextrose 50% in Water 50 ML Vial IV.PUSH PRN (18:42)
[2018-07-19] MEDS ORDERED: Enoxaparin Inj 40 MG/0.4 ML Syringe SQ SCH (18:45)
[2018-07-19] MEDS: Sod Chloride 0.9% Inj 1,000 ML IV.CONT SCH (19:39)
[2018-07-19] MEDS: Senna/Docusate Sodium 8.6/50 MG Tablet PO SCH (21:55)
[2018-07-19] MEDS: MethylPREDNISolone Sod Succinate Inj 125 MG/2 ML Vial IV.PUSH SCH (21:55)
[2018-07-19] MEDS: Insulin NovoLOG Aspart Correctional Sugar Inj SQ SCH (22:03)
[2018-07-20] MEDS: Insulin NovoLOG Aspart Correctional Sugar Inj SQ SCH ×2 (08:32→13:08)
[2018-07-20] MEDS: MethylPREDNISolone Sod Succinate Inj 125 MG/2 ML Vial IV.PUSH SCH (08:36)
[2018-07-20] MEDS: Senna/Docusate Sodium 8.6/50 MG Tablet PO SCH (08:36)
[2018-07-20] MEDS: Sod Chloride 0.9% Inj 1,000 ML IV.CONT SCH (08:37)
[2018-07-20] MEDS ORDERED: LORazepam 0.5 MG Tablet PO SCH (09:00)
[2018-07-20 11:14] LABS: Baso # (Auto) 0.1 th/mm3 (0.0-0.2); Baso % (Auto) 0.6 % (0.0-2.0); Hematocrit 32.5 % (35.0-46.0); Hemoglobin 10.3 gm/dL (11.6-15.3); Lymph # (Auto) 0.6 th/mm3 (1.0-4.8); Lymph % (Auto) 5.9 % (9.0-44.0); Mean Corpuscular HGB Conc 31.7 % (32.0-36.0); Mean Corpuscular Hemoglobin 27.7 pg (27.0-34.0); Mean Corpuscular Volume 87.2 fL (80.0-100.0); Mean Platelet Volume 7.7 fL (7.0-11.0); Mono # (Auto) 0.3 th/mm3 (0.0-0.9); Mono % (Auto) 3.1 % (0.0-8.0); Neut # (Auto) 9.4 th/mm3 (1.8-7.7); Neut % (Auto) 90.4 % (16.0-70.0); Platelet Count 370 th/mm3 (150-450); Red Blood Count 3.72 mil/mm3 (4.00-5.30); Red Cell Distribution Width 12.8 % (11.6-17.2); White Blood Count 10.4 th/mm3 (4.0-11.0)
[2018-07-20 11:37] LABS: Alanine Aminotransferase 15 U/L (10-53); Albumin 3.7 g/dL (3.4-5.0); Anion Gap 10 meq/L (5-15); Aspartate Aminotransferase 12 U/L (15-37); Blood Urea Nitrogen 23 mg/dL (7-18); Calcium 9.5 mg/dL (8.5-10.1); Carbon Dioxide 27.4 meq/L (21.0-32.0); Chloride 107 meq/L (98-107); Glomerular Filtration Rate 41 mL/min (>89); Glucose,Random 142 mg/dL (74-106); Potassium 4.1 meq/L (3.5-5.1); Sodium 144 meq/L (136-145)
[2018-07-20 11:40] LABS: Alkaline Phosphatase 65 U/L (45-117); Total Protein 7.6 g/dL (6.4-8.2)
--- NOTE | 2018-07-20 12:00 | P.PN ---
Subjective Interval history: Follow-up COPD exacerbation with respiratory failure July 20, 2018-patient seen and examined, slight wheezing in the right lower lung. Patient is alert however not responding to any of my questions. Daughter by the bedside. Physical Exam Vital signs: Vital Signs 07/19/18 14:41 07/19/18 14:50 07/19/18 15:07 Temperature Pulse Rate 89 Respiratory Rate 29 H Blood Pressure 179/77 H Pulse Oximetry 99 100 100 07/19/18 15:09 07/19/18 15:10 07/19/18 15:48 Temperature Pulse Rate 90 94 H Respiratory Rate 20 19 Blood Pressure 192/89 H Pulse Oximetry 100 99 07/19/18 16:00 07/19/18 17:00 07/19/18 18:00 Temperature Pulse Rate 98 H 99 H 86 Respiratory Rate 13 12 Blood Pressure 158/74 H 139/71 137/75 Pulse Oximetry 100 100 07/19/18 18:09 07/19/18 19:23 07/19/18 20:05 Temperature Pulse Rate 87 86 Respiratory Rate 22 18 Blood Pressure 139/68 Pulse Oximetry 100 100 100 07/19/18 20:53 07/19/18 21:00 07/19/18 21:15 Temperature 97.4 F L Pulse Rate 89 86 82 Respiratory Rate 16 Blood Pressure 140/72 Pulse Oximetry 100 07/19/18 22:00 07/19/18 23:00 07/20/18 00:00 Temperature Pulse Rate 94 H 85 86 Respiratory Rate 16 Blood Pressure 136/87 Pulse Oximetry 100 07/20/18 01:00 07/20/18 02:00 07/20/18 03:00 Temperature Pulse Rate 82 80 77 Respiratory Rate Blood Pressure Pulse Oximetry 07/20/18 04:00 07/20/18 07:00 07/20/18 08:00 Temperature 97.8 F Pulse Rate 79 85 82 Respiratory Rate 16 18 Blood Pressure 155/82 H 155/86 H Pulse Oximetry 98 94 L 07/20/18 08:45 07/20/18 09:00 07/20/18 10:00 Temperature Pulse Rate 102 H 86 90 Respiratory Rate 17 Blood Pressure Pulse Oximetry 90 L 07/20/18 11:00 Temperature Pulse Rate 84 Respiratory Rate Blood Pressure Pulse Oximetry Intake & Output 07/19/18 07/20/18 07/20/18 18:59 06:59 18:59 Intake Total 340 / 340 1000 / 1000 Output Total 300 / 300 Balance 40 / 40 1000 / 1000 Weight 58.967 kg 57.9 kg Intake: IV 100 / 100 1000 / 1000 NS Inj 1,000 ML @ 80 mls/hr IV. 1000 / 1000 CONT .[id number] SUJATA Rx#:[id number] Levaquin 750 mg Premix Inj 150 100 / 100 0 / 0 ML @ 100 mls/hr IV.SIG Q24H SUJATA Rx#:[id number] Oral 240 / 240 Output: Urine 300 / 300 Other: # Bowel Movements 0 Narrative: GENERAL: NAD SKIN: Warm and dry. HEAD: Normocephalic. EYES: No scleral icterus. No injection or drainage. NECK: Supple, trachea midline. No JVD or lymphadenopathy. CARDIOVASCULAR: Regular rate and rhythm without murmurs, gallops, or rubs. RESPIRATORY: Breath sounds equal bilaterally. No accessory muscle use. exp + wheezing GASTROINTESTINAL: Abdomen soft, non-tender, nondistended. MUSCULOSKELETAL: No cyanosis, or edema. BACK: Nontender without obvious deformity. No CVA tenderness. Results - Labs CBC & Chem 7: 07/20/18 10:48 07/20/18 10:48 Laboratory Results - last 24 hr 07/19/18 07/19/18 07/19/18 14:35 14:52 14:52 WBC 11.0 RBC 3.89 L Hgb 10.9 L Hct 34.0 L MCV 87.2 MCH 27.9 MCHC 32.0 RDW 13.1 Plt Count 411 MPV 7.5 Neut % (Auto) 51.1 Lymph % (Auto) 32.9 [place] % (Auto) 7.3 Eos % (Auto) 8.1 H Baso % (Auto) 0.6 Neut # (Auto) 5.6 Lymph # (Auto) 3.6 [place] # (Auto) 0.8 Eos # (Auto) 0.9 H Baso # (Auto) 0.1 WBC Differential . Differential Comment Auto diff final Patient Temperature 98.6 VBG pH 7.29 L* VBG pCO2 59 H* VBG pO2 39 VBG HCO3 28 H VBG O2 Saturation 64 L VBG O2 Content 9.8 VBG Base Excess 1.6 VBG Carboxyhemoglobin 0.7 VBG Methemoglobin 0.8 Hemoglobin 10.8 L O2 Delivery Device Sm Liter Flow 7.00 Inspired O2 21 Critical Value Yes Sodium 144 Potassium 3.8 Chloride 107 Carbon Dioxide 28.0 Anion Gap 9 BUN 18 Creatinine 1.25 H Estimated GFR 53 L POC Glucose Random Glucose 110 H Calcium 9.4 Total Bilirubin AST ALT Alkaline Phosphatase Troponin I Less than 0.02 L Total Protein Albumin 07/19/18 07/20/18 07/20/18 21:12 07:55 10:48 WBC 10.4 RBC 3.72 L Hgb 10.3 L Hct 32.5 L MCV 87.2 MCH 27.7 MCHC 31.7 L RDW 12.8 Plt Count 370 MPV 7.7 Neut % (Auto) 90.4 H Lymph % (Auto) 5.9 L [place] % (Auto) 3.1 Eos % (Auto) 0.0 Baso % (Auto) 0.6 Neut # (Auto) 9.4 H Lymph # (Auto) 0.6 L [place] # (Auto) 0.3 Eos # (Auto) 0.0 Baso # (Auto) 0.1 WBC Differential . Differential Comment Auto diff final Patient Temperature VBG pH VBG pCO2 VBG pO2 VBG HCO3 VBG O2 Saturation VBG O2 Content VBG Base Excess VBG Carboxyhemoglobin VBG Methemoglobin Hemoglobin O2 Delivery Device Liter Flow Inspired O2 Critical Value Sodium Potassium Chloride Carbon Dioxide Anion Gap BUN Creatinine Estimated GFR POC Glucose 120 H Random Glucose Calcium Total Bilirubin AST ALT Alkaline Phosphatase Troponin I Less than 0.02 L Total Protein Albumin 07/20/18 07/20/18 10:48 11:33 WBC RBC Hgb Hct MCV MCH MCHC RDW Plt Count MPV Neut % (Auto) Lymph % (Auto) [place] % (Auto) Eos % (Auto) Baso % (Auto) Neut # (Auto) Lymph # (Auto) [place] # (Auto) Eos # (Auto) Baso # (Auto) WBC Differential Differential Comment Patient Temperature VBG pH VBG pCO2 VBG pO2 VBG HCO3 VBG O2 Saturation VBG O2 Content VBG Base Excess VBG Carboxyhemoglobin VBG Methemoglobin Hemoglobin O2 Delivery Device Liter Flow Inspired O2 Critical Value Sodium 144 Potassium 4.1 Chloride 107 Carbon Dioxide 27.4 Anion Gap 10 BUN 23 H Creatinine 1.55 H Estimated GFR 41 L POC Glucose 131 H Random Glucose 142 H Calcium 9.5 Total Bilirubin 0.3 AST 12 L ALT 15 Alkaline Phosphatase 65 Troponin I Total Protein 7.6 Albumin 3.7 Microbiology 07/19/18 14:52 Blood - Peripheral Aerobic Blood Culture - Preliminary No growth in 1 day 07/19/18 14:52 Blood - Peripheral Anaerobic Blood Culture - Preliminary No growth in 1 day 07/19/18 14:57 Blood - Peripheral Aerobic Blood Culture - Preliminary No growth in 1 day 07/19/18 14:57 Blood - Peripheral Anaerobic Blood Culture - Preliminary No growth in 1 day - Imaging Impressions Chest X-Ray 07/19/18 14:42 CONCLUSION: Negative examination. Assessment and Plan - Assessment (1) Acute respiratory distress Code(s): R06.03 - Acute respiratory distress Status: Acute (2) Acute exacerbation of chronic obstructive airways disease Code(s): J44.1 - Chronic obstructive pulmonary disease with (acute) exacerbation Status: Acute - Plan 63-year-old female with Acute respiratory failure COPD exacerbation BiPAP as needed Change Solu-Medrol to 40 mg IV every 8 hour Continue with long-acting beta agonist, DuoNeb as needed, and maintain oxygen saturation above 92% Switch to p.o. azithromycin from Levaquin IV Check ABG Dementia Continue home Donepezil, Namenda Acute renal insufficiency Monitor BUN and creatinine, avoid all nephrotoxic drug Diabetes type 2 On insulin sliding scale Oral anti-hyperglycemic agents on hold HTN Continue losartan Anxiety -Lorazepam as needed for anxiety DVT PPX Lovenox 40mg daily Discharge patient to home Condition on discharge: Improved ADA Diet as tolerated Ad Lizzette activity Rx written: see EMR Follow-up with primary care physician in 1 week
[2018-07-20 12:14] LABS: ABG Base Excess -1.6 mmol/L (-2-2); ABG PCO2 35 mmHg (38-42); ABG PO2 85 mmHG (61-120)
--- NOTE | 2018-07-20 12:28 | ECG ---
Date Performed: 07/19/2018 Time Performed: 23:14:46 PTAGE: 63 years EKG: Sinus rhythm with PAC(s) Borderline ECG PREVIOUS TRACING : 07/19/2018 14.48 Since the previous tracing, no significant change noted DOCTOR: Melissa Grajeda Interpretating Date/Time 07/20/2018 12:26:52
[2018-07-20 13:08] VITALS: O2SAT 100
--- NOTE | 2018-07-20 13:42 | ECG ---
Date Performed: 07/19/2018 Time Performed: 14:48:23 PTAGE: 63 years EKG: Sinus rhythm WITH SINUS ARRHYTHMIA NONSPECIFIC T-WAVE ABNORMALITY ABNORMAL RHYTHM ECG Compared to PREVIOUS TRACING , the sinus arrhythmia and probable wandering atrial pacemaker are new. There has been some slight variation in the ST-T wave changes. PREVIOUS TRACIN07/21/2017 00.32 DOCTOR: Melissa Grajeda Interpretating Date/Time 07/20/2018 13:41:08
[2018-07-20] MEDS ORDERED: MethylPREDNISolone Sod Succinate Inj 40 MG/ML Vial IV.PUSH SCH (14:00)
[2018-07-20 16:11] VITALS: BP 148/97; PULSE 85; RESP 18; TEMP 98.5
== END 2018-07-20 16:17 | disposition hospice, home (50) ==
LOC: NEPE 14:33 → NEDA 17:01 → HCIS 20:42
PROVIDERS: ADMIT Hospitalist; ATTEND Hospitalist